=== PATIENT | female | born 1945 | race Caucasian/White ===

== ENCOUNTER 2016-03-11 19:02 | Emergency (ER) | payer MEDICARE, BC ==
[2016-03-11 21:48] LABS: ABSOLUTE LYMPHOCYTES (AUTO) 1.1 10^3/uL (0.5-4.7); ABSOLUTE MONOCYTES (AUTO) 0.1 10^3/uL (0.1-1.4); ABSOLUTE NEUT (AUTO) 8.3 10^3/uL (1.7-8.2); BASOPHILS % (AUTO) 0.4 % (0-2); EOSINOPHILS % (AUTO) 0.3 % (0-6); HEMATOCRIT 35.2 % (36.0-47.0); HEMOGLOBIN 11.7 g/dL (12.0-15.5); HGB HCT DIFFERENCE -0.1; LYMPHOCYTES % (AUTO) 11.4 % (13-45); MEAN CORPUSCULAR HEMOGLOBIN 29.5 pg (27.0-33.4); MEAN CORPUSCULAR HGB CONC 33.2 g/dL (32.0-36.0); MEAN CORPUSCULAR VOLUME 89 fl (80-97); RED BLOOD COUNT 3.96 10^6/uL (3.72-5.28); RED CELL DISTRIBUTION WIDTH 13.7 % (11.5-14.0); SEGMENTED NEUTROPHILS % (AUTO) 86.9 % (42-78); WHITE BLOOD COUNT 9.5 10^3/uL (4.0-10.5)
[2016-03-11 22:08] LABS: ANION GAP 10 (5-19); BLOOD UREA NITROGEN 30 mg/dL (7-20); CALCIUM 8.2 mg/dL (8.4-10.2); CARBON DIOXIDE 26 mmol/L (22-30); CHLORIDE 100 mmol/L (98-107); CREATININE RESULT 0.67 mg/dL (0.52-1.25); GLUCOSE 101 mg/dL (75-110); POTASSIUM 4.6 mmol/L (3.6-5.0); SODIUM 136.2 mmol/L (137-145)
[2016-03-11] MEDS ORDERED: ONDANSETRON ODT 4 MG TAB (6 TAB/DSPK) PO PRN (23:30)
--- NOTE | 2016-03-11 23:31 | ER Document Report ---
ED General - General Chief Complaint: Nausea/Vomiting/Diarrhea Stated Complaint: POSSIBLE SEIZURE,VOMITING TRAVEL OUTSIDE OF THE [place] IN LAST 30 DAYS: No - HPI Patient complains to provider of: nausea vomiting possible seizure Notes: Patient coming in for nausea vomiting and possible seizure. Patient states she was out at a local restaurant with her physician Dr. Bear when she passed out for approximately 25-30 seconds with September shaking did come to within had a massive amounts of diarrhea and vomiting at the restaurant. Patient was transferred by EMS was given Zofran IV fluids. Patient currently is undergoing chemotherapy for cancer. Patient states she just finished up her last dose chemotherapy. Upon evaluation patient lying flat stretcher states she's feeling much better at nausea medications. Denies fevers chills - Related Data Allergies/Adverse Reactions: Bee Stings/Wasp Allergy (Severe, Uncoded 07/30/12 14:39) Anaphylaxis Past Medical History - General Information source: Patient, Friend, Emergency Med Personnel Last Menstrual Period: n/a - Social History Smoking Status: Never Smoker Chew tobacco use (# tins/day): No Frequency of alcohol use: Occasional Drug Abuse: None Family History: None Patient has suicidal ideation: No Patient has homicidal ideation: No - Past Medical History Cardiac Medical History: Reports: Hx Hypertension Denies: Hx Coronary Artery Disease, Hx Heart Attack Pulmonary Medical History: Denies: Hx Asthma, Hx Bronchitis, Hx COPD, Hx Pneumonia Neurological Medical History: Denies: Hx Cerebrovascular Accident, Hx Seizures GI Medical History: Reports: Hx Gastroesophageal Reflux Disease Musculoskeltal Medical History: Denies Hx Arthritis Past Surgical History: Reports: Hx Appendectomy, Hx Orthopedic Surgery - right finger, left wrist, Hx Thyroid Surgery, Hx Tonsillectomy. Denies: Hx Hysterectomy - Immunizations Hx Diphtheria, Pertussis, Tetanus Vaccination: No Review of Systems - Review of Systems Constitutional: No symptoms reported EENT: No symptoms reported Cardiovascular: No symptoms reported Respiratory: No symptoms reported Gastrointestinal: Diarrhea, Nausea, Vomiting Genitourinary: No symptoms reported Female Genitourinary: No symptoms reported Musculoskeletal: No symptoms reported Skin: No symptoms reported Hematologic/Lymphatic: No symptoms reported Neurological/Psychological: No symptoms reported -: Yes All other systems reviewed and negative Physical Exam - Vital signs Vitals: Temp Pulse Resp BP Pulse Ox 97.7 F 52 L 16 115/46 L 96 03/11/16 19:28 03/11/16 19:28 03/11/16 19:28 03/11/16 19:28 03/11/16 19:28 Interpretation: Normal - General General appearance: Appears well, Alert - HEENT Head: Normocephalic, Atraumatic Eyes: Normal Pupils: PERRL - Respiratory Respiratory status: No respiratory distress Chest status: Nontender Breath sounds: Normal Chest palpation: Normal - Cardiovascular Rhythm: Regular Heart sounds: Normal auscultation Murmur: No - Abdominal Inspection: Normal Distension: No distension Bowel sounds: Normal Tenderness: Nontender Organomegaly: No organomegaly - Back Back: Normal, Nontender - Extremities General upper extremity: Normal inspection, Nontender, Normal color, Normal ROM , Normal temperature General lower extremity: Normal inspection, Nontender, Normal color, Normal ROM , Normal temperature, Normal weight bearing. No: Jennifer's sign - Neurological Neuro grossly intact: Yes Cognition: Normal Orientation: AAOx4 Karina Coma Scale Eye Opening: Spontaneous Karina Coma Scale Verbal: Oriented Karina Coma Scale Motor: Obeys Commands Karina Coma Scale Total: 15 Speech: Normal Motor strength normal: LUE, RUE, LLE, RLE Sensory: Normal - Psychological Associated symptoms: Normal affect, Normal mood - Skin Skin Temperature: Warm Skin Moisture: Dry Skin Color: Normal Course - Re-evaluation Re-evalutation: 03/12/16 03:21 Patient coming in for nausea vomiting diarrhea in a possible seizure. Patient and recently had a CT of her head performed approximately one week ago. At this time do not think there is any rationale to obtain another CT scan to check for mass or metastases. Patient and family agrees with this. Orthostatics were positive patient was given IV fluids on rechecking patient stated he understood feet feeling better requesting to be discharged home. Patient will be given Zofran for home patient's follow-up with her PCP - Vital Signs Vital signs: Temp Pulse Resp BP Pulse Ox 98.2 F 48 L 18 99/56 L 100 03/11/16 23:01 03/11/16 21:25 03/11/16 23:01 03/11/16 23:01 03/11/16 23:01 - Laboratory Result Diagrams: 03/11/16 21:32 03/11/16 21:32 Laboratory results interpreted by me: 03/11/16 03/11/16 21:32 21:32 Hgb 11.7 L Hct 35.2 L Seg Neutrophils % 86.9 H Lymphocytes % 11.4 L Monocytes % 1.0 L Absolute Neutrophils 8.3 H Sodium 136.2 L BUN 30 H Calcium 8.2 L Discharge - Discharge Clinical Impression: Nausea vomiting and diarrhea, possible seizure Condition: Good Disposition: HOME, SELF-CARE Instructions: Seizure, Known Epileptic ([facility]), Nausea or Vomiting, Nonspecific ( [facility]) Additional Instructions: Follow-up with your primary care physician Take medication as prescribed. Prescriptions: Ondansetron [Zofran Odt 4 mg Tablet] 1 - 2 tab PO Q4H PRN #15 tab.rapdis PRN Reason: For Nausea/Vomiting Referrals: RACHEL BEAR MD [Primary Care Provider] - Follow up as needed
[2016-03-11 23:58] VITALS: BP 99/56
== END 2016-03-11 23:40 | disposition home or self-care (01) ==
LOC: ER 19:02
DX: R11.2 Nausea with vomiting, unspecified (principal); R19.7 Diarrhea, unspecified
CPT/HCPCS: 99284; 36415; 85025; 80048; A9270

== ENCOUNTER 2016-07-02 17:25 | Emergency (ER) | payer MEDICARE, BC ==
[2016-07-02] MEDS ORDERED: ACETAMINOPHEN 325 MG TABLET PO ONE (17:47)
[2016-07-02] MEDS ORDERED: LIDOCAINE 1%/EPINEPHRINE INJ 20 ML VIAL INJ ONE (17:58)
[2016-07-02] MEDS ORDERED: OXYCODONE-ACETAMINOPHEN 5-325 MG TABLET PO ONE (17:58)
--- NOTE | 2016-07-02 18:15 | ER Document Report ---
ED Head/Face/Scalp Injury - General Chief Complaint: Facial Injury Stated Complaint: FALL,FACE INJURY Information source: Patient Notes: Patient is a 71-year-old female who states she went on in the rain to take up pot that was getting too much water, when she lost her balance and fell forward hitting her face. She is unsure whether or not she lost consciousness. Patient denies pain to any other location other than her forehead. She specifically denies any neck pain, chest pain, abdominal pain, back pain, or extremity pain. 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 Patient is on chemotherapy with a blood draw just yesterday showing platelets of 134,000 with a low but stable white blood cell count. TRAVEL OUTSIDE OF THE [place] IN LAST 30 DAYS: No - HPI Patient complains to provider of: Contusion, Injury Injury to: Forehead Occurred: Just prior to arrival Where: Home Timing: Still present Context: Fell Loss consciousness: Unsure Remembers: Injury, Coming to hospital - Related Data Allergies/Adverse Reactions: Bee Stings/Wasp Allergy (Severe, Uncoded 07/30/12 14:39) Anaphylaxis Past Medical History - General Information source: Patient - Social History Smoking Status: Unknown if Ever Smoked Cigarette use (# per day): No Chew tobacco use (# tins/day): No Smoking Education Provided: No Frequency of alcohol use: None Drug Abuse: None Family History: None - Past Medical History Cardiac Medical History: Reports: Hx Hypertension Denies: Hx Coronary Artery Disease, Hx Heart Attack Pulmonary Medical History: Denies: Hx Asthma, Hx Bronchitis, Hx COPD, Hx Pneumonia Neurological Medical History: Denies: Hx Cerebrovascular Accident, Hx Seizures GI Medical History: Reports: Hx Gastroesophageal Reflux Disease Musculoskeltal Medical History: Denies Hx Arthritis Past Surgical History: Reports: Hx Appendectomy, Hx Orthopedic Surgery - right finger, left wrist, Hx Thyroid Surgery, Hx Tonsillectomy. Denies: Hx Hysterectomy - Immunizations Hx Diphtheria, Pertussis, Tetanus Vaccination: No Review of Systems - Review of Systems Constitutional: denies: Fever EENT: denies: Eye discharge, Nose discharge Cardiovascular: denies: Chest pain, Palpitations, Dyspnea Respiratory: denies: Short of breath Gastrointestinal: denies: Abdomen distended, Abdominal pain, Vomiting Genitourinary: denies: Dysuria Musculoskeletal: denies: Back pain, Leg swelling Skin: Other - no hives. denies: Rash Neurological/Psychological: Other - no slurred speech -: Yes All other systems reviewed and negative Physical Exam - Vital signs Vitals: Temp Pulse Resp BP Pulse Ox 98.0 F 74 16 134/70 H 97 07/02/16 18:00 07/02/16 18:00 07/02/16 18:00 07/02/16 18:00 07/02/16 18:00 Notes: Reviewed vital signs and nursing note as charted by RN. CONSTITUTIONAL: Alert and oriented and responds appropriately to questions. Well -appearing; well-nourished HEAD: Normocephalic; patient has superficial abrasions to the face. Patient has one laceration that is horizontal across the bridge of the nose that is currently hemostatic as well as another one to the left forehead that appears to possibly require stitches. EYES: PERRL; full extraocular range of motion. ENT: No septal hematoma noted; moist mucous membranes; pharynx without lesions noted NECK: Supple without meningismus; non-tender CARD: Regular rate and rhythm; no murmurs, no clicks, no rubs, no gallops; symmetric distal pulses RESP: Normal chest excursion without splinting or tachypnea; breath sounds clear and equal bilaterally; no wheezes, no rhonchi, no rales ABD/GI: Normal bowel sounds; non-distended; soft, non-tender BACK: The back appears normal and is non-tender to palpation EXT: Normal ROM in all joints; non-tender to palpation; no cyanosis, no effusions, no edema SKIN: Lesions as noted NEURO: CN II through XII are intact. Moves all extremities equally; Motor and sensory function intact PSYCH: The patient's mood and manner are appropriate. Grooming and personal hygiene are appropriate. Course - Re-evaluation Re-evalutation: 07/02/16 18:14 Given the history and physical examination we will order a CT scan of the head as well as basic laboratory values. We will most likely update the patient's tetanus and suture the lacerations as appropriate. I do not believe that the patient requires any imaging of the neck, chest or extremity is at this time. 07/02/16 19:55 Labs consistent with past medical history. CT scan as recorded. I sutured the 3 lacerations. Patient will be discharged home with strict return precautions, antibiotic instructions, and suture instructions as well. - Vital Signs Vital signs: Temp Pulse Resp BP Pulse Ox 98.0 F 74 16 134/70 H 97 07/02/16 18:00 07/02/16 18:00 07/02/16 18:00 07/02/16 18:00 07/02/16 18:00 - Laboratory Result Diagrams: 07/02/16 18:55 07/02/16 18:55 Laboratory results interpreted by me: 07/02/16 07/02/16 18:55 18:55 RBC 2.49 L Hgb 8.2 L Hct 24.2 L RDW 19.3 H Plt Count 132 L Seg Neuts % (Manual) 94 H Lymphocytes % (Manual) 3 L Abs Lymphs (Manual) 0.2 L BUN 28 H Glucose 111 H Procedures - Laceration/Wound Repair Face Wound length (cm): 2 Wound's Depth, Shape: Linear Laceration pre-procedure: Sterile PPE donned Anesthetic type: 1% Lidocaine w/epi Volume Anesthetic (mLs): 3 Wound explored: Clean Wound Debrided: Minimal Wound Repaired With: Sutures Suture Size/Type: 5:0, Prolene Number of Sutures: 4 Layer Closure?: No Post-procedure wound care: Sterile dressing applied Post-procedure NV exam normal: Yes Complications: No Head Wound length (cm): 2 Wound's Depth, Shape: Linear Laceration pre-procedure: Sterile PPE donned Anesthetic type: 1% Lidocaine w/epi Volume Anesthetic (mLs): 3 Wound explored: Clean Wound Debrided: Minimal Wound Repaired With: Sutures Suture Size/Type: 5:0 Number of Sutures: 3 Layer Closure?: No Post-procedure wound care: Sterile dressing applied Post-procedure NV exam normal: Yes Complications: Yes Notes: 07/02/16 19:59 There was a third facial laceration. 1 cm in length. We cleaned and prepped the area and use 1% lidocaine with epinephrine, 2 mL to anesthetize the area. I then placed three 5.0 Prolene sutures for this wound as well. Discharge - Discharge Clinical Impression: Closed head injury Qualifiers: Encounter type: initial encounter Qualified Code(s): S09.90XA - Unspecified injury of head, initial encounter Accidental fall Qualifiers: Encounter type: initial encounter Qualified Code(s): W19.XXXA - Unspecified fall, initial encounter Face lacerations Qualifiers: Encounter type: initial encounter Qualified Code(s): S01.81XA - Laceration without foreign body of other part of head, initial encounter Condition: Good Disposition: HOME, SELF-CARE Instructions: Antibiotic Ointment Protection ([facility]), Prophylactic Antibiotic ( [facility]), Soap Cleansing ([facility]), Tetanus Immunization Given ([facility]) Additional Instructions: Come back immediately with any vomiting, weakness or numbness, fevers or redness , confusion, or any other acute problems. Please have the sutures removed in 5 days as we have discussed and apply bacitracin to the wound twice daily until the stitches are removed. Once the stitches are removed please make sure that you place antibiotic ointment to the lacerations daily for one year. Prescriptions: Cephalexin Monohydrate [Keflex 500 mg Capsule] 500 mg PO Q6H 5 Days
[2016-07-02 19:17] LABS: HEMATOCRIT 24.2 % (36.0-47.0); HEMOGLOBIN 8.2 g/dL (12.0-15.5); HGB HCT DIFFERENCE 0.4; MEAN CORPUSCULAR HEMOGLOBIN 32.9 pg (27.0-33.4); MEAN CORPUSCULAR VOLUME 97 fl (80-97); RED BLOOD COUNT 2.49 10^6/uL (3.72-5.28); RED CELL DISTRIBUTION WIDTH 19.3 % (11.5-14.0); WHITE BLOOD COUNT 6.7 10^3/uL (4.0-10.5)
[2016-07-02 19:21] LABS: ANION GAP 13 (5-19); BLOOD UREA NITROGEN 28 mg/dL (7-20); CALCIUM 8.4 mg/dL (8.4-10.2); CARBON DIOXIDE 24 mmol/L (22-30); CHLORIDE 106 mmol/L (98-107); CREATININE RESULT 0.85 mg/dL (0.52-1.25); GLUCOSE 111 mg/dL (75-110); POTASSIUM 3.9 mmol/L (3.6-5.0); SODIUM 143.4 mmol/L (137-145)
[2016-07-02 19:41] LABS: BASOPHILS % (MANUAL) 0 % (0-2); EOSINOPHILS % (MANUAL) 0 % (0-6); LYMPHOCYTES % (MANUAL) 3 % (13-45); TOTAL CELLS COUNTED 100
[2016-07-02 19:43] LABS: POLYCHROMASIA 1+; TOXIC GRANULATION 1+
[2016-07-02 19:44] LABS: ANISOCYTOSIS 2+; OVALOCYTES SLIGHT; POIKILOCYTOSIS 1+; SCHISTOCYTES SLIGHT; TEAR DROP CELLS 1+
[2016-07-02] MEDS ORDERED: CEPHALEXIN 500 MG CAPSULE PO ONE (20:02)
[2016-07-02] MEDS ORDERED: DIPH/PERTUSS(ACELL)/TETANUS VAC/PF 0.5 ML SYR (>=10YO) IM ONE (20:19)
[2016-07-02 20:36] VITALS: BP 142/82
== END 2016-07-02 20:59 | disposition home or self-care (01) ==
LOC: ER 17:25
PROC: 0HQ1XZZ Repair Face Skin, External Approach (ICD-10-PCS; principal; 2016-07-02)
PROC: 09QKXZZ Repair Nasal Mucosa and Soft Tissue, External Approach (ICD-10-PCS; 2016-07-02)
DX: S01.21XA Laceration without foreign body of nose, initial encounter (principal); S01.81XA Laceration without foreign body of other part of head, initial encounter; W10.9XXA Fall (on) (from) unspecified stairs and steps, initial encounter; Y93.89 Activity, other specified; Y92.009 Unspecified place in unspecified non-institutional (private) residence as the place of occurrence of the external cause; C50.919 Malignant neoplasm of unspecified site of unspecified female breast; C34.90 Malignant neoplasm of unspecified part of unspecified bronchus or lung; I10 Essential (primary) hypertension; Z79.899 Other long term (current) drug therapy; Z87.892 Personal history of anaphylaxis; Z91.030 Bee allergy status; Z91.038 Other insect allergy status
CPT/HCPCS: 99284; 90471; 36415; 85025; 80048; 70450; 90715; 12013; A9270 ×2; J3490

== ENCOUNTER 2016-07-07 10:31 | Emergency (ER) | payer MEDICARE, BC ==
--- NOTE | 2016-07-07 10:53 | ER Document Report ---
ED General - General Chief Complaint: Low Blood Pressure Stated Complaint: BLOOD PRESSURE PROBLEMS,SUTURE REMOVAL Mode of Arrival: Wheelchair Information source: Patient Notes: 71-year-old female history of breast and lung cancer who is receiving chemotherapy at [facility] presents with complaints of weakness low blood pressure. Patient notes that she has had nausea vomiting and diarrhea for the past few days and has not been hydrating well TRAVEL OUTSIDE OF THE [place] IN LAST 30 DAYS: No - HPI Onset: Last week Onset/Duration: Persistent Quality of pain: Achy Severity: Mild Pain Level: 1 Associated symptoms: Body/muscle aches, Weakness Exacerbated by: Denies Relieved by: Denies Similar symptoms previously: Yes Recently seen / treated by doctor: Yes - Related Data Allergies/Adverse Reactions: Bee Stings/Wasp Allergy (Severe, Uncoded 07/07/16 10:35) Anaphylaxis Past Medical History - Social History Smoking Status: Never Smoker Cigarette use (# per day): No Chew tobacco use (# tins/day): No Smoking Education Provided: No Family History: None Patient has suicidal ideation: No Patient has homicidal ideation: No - Past Medical History Cardiac Medical History: Reports: Hx Hypertension Denies: Hx Coronary Artery Disease, Hx Heart Attack Pulmonary Medical History: Denies: Hx Asthma, Hx Bronchitis, Hx COPD, Hx Pneumonia Neurological Medical History: Denies: Hx Cerebrovascular Accident, Hx Seizures Renal/ Medical History: Denies: Hx Peritoneal Dialysis GI Medical History: Reports: Hx Gastroesophageal Reflux Disease Musculoskeltal Medical History: Denies Hx Arthritis Past Surgical History: Reports: Hx Appendectomy, Hx Orthopedic Surgery - right finger, left wrist, Hx Thyroid Surgery, Hx Tonsillectomy. Denies: Hx Hysterectomy - Immunizations Hx Diphtheria, Pertussis, Tetanus Vaccination: No Review of Systems - Review of Systems Notes: REVIEW OF SYSTEMS: CONSTITUTIONAL : Denies fever, chills, or sweats. Denies recent illness. EENT: Denies eye, ear, throat, or mouth pain or symptoms. Denies nasal or sinus congestion or discharge. Denies throat, tongue, or mouth swelling or difficulty swallowing. CARDIOVASCULAR: Denies chest pain. Denies palpitations or racing or irregular heart beat. Denies ankle edema. RESPIRATORY: Denies cough, cold, or chest congestion. Denies shortness of breath, difficulty breathing, or wheezing. GASTROINTESTINAL: Denies abdominal pain or distention. Denies nausea, vomiting , or diarrhea. Denies blood in vomitus, stools, or per rectum. Denies black, tarry stools. Denies constipation. GENITOURINARY: Denies difficulty urinating, painful urination, burning, frequency, blood in urine, or discharge. FEMALE GENITOURINARY: Denies vaginal bleeding, heavy or abnormal periods, irregular periods. Denies vaginal discharge or odor. MUSCULOSKELETAL: Denies back or neck pain or stiffness. Denies joint pain or swelling. SKIN: Denies rash, lesions or sores. HEMATOLOGIC : Denies easy bruising or bleeding. LYMPHATIC: Denies swollen, enlarged glands. NEUROLOGICAL: Admits to generalized weakness PSYCHIATRIC: Denies anxiety or stress. Denies depression, suicidal ideation, or homicidal ideation. ALL OTHER SYSTEMS REVIEWED AND NEGATIVE. Dictation was performed using [employer] voice recognition software PHYSICAL EXAMINATION: GENERAL: Hypotensive on arrival HEAD: Previous 3 lacerations well-healing multiple sutures in place EYES: Pupils equal round and reactive to light, extraocular movements intact, conjunctiva are normal. ENT: Ecchymosis around the right orbit from previous injury , Nares patent, oropharynx clear without exudates. Moist mucous membranes. NECK: Normal range of motion, supple without lymphadenopathy LUNGS: Breath sounds clear to auscultation bilaterally and equal. No wheezes rales or rhonchi. HEART: Regular rate and rhythm without murmurs ABDOMEN: Soft, nontender, nondistended abdomen. No guarding, no rebound. No masses appreciated. Female : deferred Musculoskeletal: Normal range of motion, no pitting or edema. No cyanosis. NEUROLOGICAL: Cranial nerves grossly intact. Normal speech, normal gait. Normal sensory, motor exams PSYCH: Normal mood, normal affect. SKIN: Warm, Dry, normal turgor, no rashes or lesions noted. Physical Exam - Vital signs Vitals: Temp Pulse Resp BP Pulse Ox 97.4 F 113 H 19 89/53 L 98 07/07/16 10:38 07/07/16 10:38 07/07/16 10:38 07/07/16 10:38 07/07/16 10:38 Course - Re-evaluation Re-evalutation: 07/07/16 10:52 Patient is noted to be hypotensive, poor will be accessed patient will be given IV fluids 07/07/16 13:34 Patient notes that her blood pressure is improved she feels great and wishes to be discharged home. I will discharge her at her request. Given that her white count is low and she has not received her neulasta, i have ordered it from pharmacy Otherwise patient will be discharged Sutures were removed by nurse After performing a Medical Screening Examination, I estimate there is LOW risk for INTRACRANIAL HEMORRHAGE, ISCHEMIC CVA, MALIGNANT DYSRHYTHMIA, ACUTE CORONARY SYNDROME, MENINGITIS, PULMONARY EMBOLISM, or SEPSIS thus I consider the discharge disposition reasonable. I have reevaluated this patient multiple times and no significant life threatening changes are noted. The patient and I have discussed the diagnosis and risks, and we agree with discharging home with close follow-up with the understanding that symptoms and presentations can change. We also discussed returning to the Emergency Department immediately if new or worsening symptoms occur. We have discussed the symptoms which are most concerning (e.g., changing or worsening pain, weakness, vomiting, fever) that necessitate immediate return. 07/07/16 13:35 - Vital Signs Vital signs: Temp Pulse Resp BP Pulse Ox 97.4 F 113 H 19 110/57 L 98 07/07/16 10:38 07/07/16 10:38 07/07/16 13:02 07/07/16 12:46 07/07/16 13:02 - Laboratory Result Diagrams: 07/07/16 11:00 07/07/16 11:00 Laboratory results interpreted by me: 07/07/16 07/07/16 11:00 11:00 WBC 1.2 L* RBC 2.83 L Hgb 9.3 L Hct 27.6 L MCV 98 H RDW 17.9 H Monocytes % (Manual) 2 L Abs Neuts (Manual) 0.7 L Abs Monocytes (Manual) 0.0 L BUN 33 H Est GFR (Non-Af Amer) 51 L Glucose 114 H - Diagnostic Test Radiology reviewed: Image reviewed, Reports reviewed - EKG Interpretation by Me EKG shows normal: Sinus rhythm, Dawn, Intervals, QRS Complexes Critical Care Note - Critical Care Note Total time excluding time spent on procedures (mins): 35 Comments: 35 minutes of critical care time spent in direct contact evaluating and reevaluating the patient, treating symptoms, reviewing labs and studies and speaking with family and consultants excluding any procedures Discharge - Discharge Clinical Impression: Visit for suture removal, LOW WBC COUNT Hypotension Qualifiers: Hypotension type: unspecified hypotension type Qualified Code(s): I95.9 - Hypotension, unspecified Hypotension Qualifiers: Hypotension type: unspecified hypotension type Qualified Code(s): I95.9 - Hypotension, unspecified Condition: Stable Disposition: HOME, SELF-CARE Additional Instructions: Please follow-up with your primary care physician or return immediately if there any other concerns
[2016-07-07] MEDS ORDERED: ONDANSETRON HCL INJ/PF 4 MG/2 ML SDV IV ONE (11:03)
[2016-07-07] MEDS: NORMAL SALINE 1000 ML 1,000 ML IV PRN ×2 (11:09→13:10)
[2016-07-07 11:30] LABS: HEMATOCRIT 27.6 % (36.0-47.0); HEMOGLOBIN 9.3 g/dL (12.0-15.5); HGB HCT DIFFERENCE 0.3; MEAN CORPUSCULAR HEMOGLOBIN 32.7 pg (27.0-33.4); MEAN CORPUSCULAR HGB CONC 33.5 g/dL (32.0-36.0); MEAN CORPUSCULAR VOLUME 98 fl (80-97); RED BLOOD COUNT 2.83 10^6/uL (3.72-5.28); RED CELL DISTRIBUTION WIDTH 17.9 % (11.5-14.0)
[2016-07-07 11:41] LABS: ALANINE AMINOTRANSFERASE 37 U/L (9-52); ALBUMIN 3.8 g/dL (3.5-5.0); ALKALINE PHOSPHATASE 95 U/L (38-126); ANION GAP 13 (5-19); ASPARTATE AMINO TRANSFERASE 22 U/L (14-36); BILIRUBIN,DIRECT 0.2 mg/dL (0.0-0.4); BILIRUBIN,TOTAL 0.4 mg/dL (0.2-1.3); BLOOD UREA NITROGEN 33 mg/dL (7-20); CALCIUM 8.5 mg/dL (8.4-10.2); CARBON DIOXIDE 28 mmol/L (22-30); CHLORIDE 100 mmol/L (98-107); CREATININE RESULT 1.07 mg/dL (0.52-1.25); GLUCOSE 114 mg/dL (75-110); SODIUM 140.6 mmol/L (137-145); TOTAL PROTEIN 6.7 g/dL (6.3-8.2)
[2016-07-07 11:42] LABS: POTASSIUM 3.7 mmol/L (3.6-5.0)
[2016-07-07 12:03] LABS: BAND NEUTROPHILS % (MANUAL) 4 % (3-5); BASOPHILS % (MANUAL) 0 % (0-2); EOSINOPHILS % (MANUAL) 2 % (0-6); LYMPHOCYTES % (MANUAL) 36 % (13-45); TOTAL CELLS COUNTED 50
[2016-07-07 12:04] LABS: ANISOCYTOSIS 1+; OVALOCYTES SLIGHT; PLATELET CLUMPS PRESENT; POIKILOCYTOSIS SLIGHT; TEAR DROP CELLS SLIGHT
[2016-07-07 12:07] LABS: WHITE BLOOD COUNT 1.2 10^3/uL (4.0-10.5)
[2016-07-07] MEDS ORDERED: PEGFILGRASTIM INJ 6 MG/0.6 ML DISP.SYRIN SUBCUT ONE (14:15)
[2016-07-07 14:18] VITALS: BP 108/69
[2016-07-08 17:53] LABS: PATH REVIEW PATHOLOGIST REVIEWED
== END 2016-07-07 14:16 | disposition home or self-care (01) ==
LOC: ER 10:31
DX: I95.9 Hypotension, unspecified (principal); Z48.02 Encounter for removal of sutures; C50.919 Malignant neoplasm of unspecified site of unspecified female breast; C78.00 Secondary malignant neoplasm of unspecified lung; M79.1 Myalgia; R11.2 Nausea with vomiting, unspecified; R53.1 Weakness; I10 Essential (primary) hypertension; Z91.030 Bee allergy status
CPT/HCPCS: 36591; 99291; 96372; 96360; 96361; 36415; 85025; 80053; 71010; J2505; J7030

== ENCOUNTER 2016-07-25 11:39 | Day surgery (SDC) | payer MEDICARE, BC ==
[2016-07-25] MEDS ORDERED: DIPHENHYDRAMINE HCL 50 MG/ML VIAL ONE (12:31)
[2016-07-25] MEDS ORDERED: NALOXONE HCL INJ/PF 0.4 MG/1 ML SDV ONE (12:31)
[2016-07-25] MEDS ORDERED: ONDANSETRON HCL INJ/PF 4 MG/2 ML SDV ONE (12:31)
[2016-07-25] MEDS ORDERED: FLUMAZENIL INJ 0.5 MG/5 ML VIAL IV ONE (12:32)
[2016-07-25] MEDS ORDERED: GLUCAGON,HUMAN RECOMB 1 MG INJ ONE (12:32)
[2016-07-25] MEDS ORDERED: EPINEPHRINE INJ 1 MG/10 ML DISP.SYRIN ONE (12:32)
[2016-07-25] MEDS: MIDAZOLAM 2 MG/2 ML INJ ONE ×6 (12:50→13:10)
[2016-07-25] MEDS: FENTANYL CITRATE INJ/PF 100 MCG/2 ML AMPUL ONE ×3 (12:52→13:00)
[2016-07-25] MEDS ORDERED: MIDAZOLAM 2 MG/2 ML INJ ONE (13:19)
[2016-07-25] MEDS ORDERED: FENTANYL CITRATE INJ/PF 100 MCG/2 ML AMPUL ONE (13:19)
--- NOTE | 2016-07-25 13:47 | Operative Report ---
Operative Report DATE OF SURGERY: 07/25/16 Operative Report: The risks, benefits and alternatives of the procedure including risks of bleeding, perforation requiring surgery are explained to the patient detail and informed consent was obtained. Patient was taken back to the endoscopy suite and placed in the left common lateral decubital position. A rectal examination was done which did not give any masses, tears or fissures. An Olympus video scope was inserted into the patient's rectum. The scope was gradually advanced all the way to the cecum. The cecum was identified by the usual anatomical Diamox including the ileocecal valve as well as the appendiceal office. Photodocumentation is obtained. The scope was then sequentially pulled back the interventions of the colon including the ascending colon, hepatic flexure, transverse colon, splenic flexure, descending colon and splenic to the rectosigmoid portions of the colon. Retroflexion maneuver was performed. Prep is good. PREOPERATIVE DIAGNOSIS: Rectal bleeding POSTOPERATIVE DIAGNOSIS: Anal fissure. Internal hemorrhoids. Diverticulosis. Small sessile descending colon polyp removed via biopsy forceps OPERATION: Colonoscopy with biopsy SURGEON: VICKIE OGDEN ANESTHESIA: Moderate Sedation - 9 mg of Versed, 200 mcg of fentanyl. Conscious sedation monitoring time 30 minutes. TISSUE REMOVED OR ALTERED: Specimen as described above COMPLICATIONS: None. ESTIMATED BLOOD LOSS: None. INTRAOPERATIVE FINDINGS: There is severe sigmoid diverticulosis. Small sessile 1 mm polyp in the descending colon removed with biopsy forceps. Internal hemorrhoids. Small anal fissure. No other bleeding site noted. No obstructive lesion noted PROCEDURE: Patient tolerated the procedure well. Patient is discharged in good condition. Discharge date 07/25/2016. Discharge diet: Regular. Discharge activity: Regular. 2- 3 week follow-up to discuss findings. Patient was instructed to call the office or go to the emergency room should there be any further thoughts or questions. We will wait on biopsies.
[2016-07-25 14:29] VITALS: BP 107/85
== END 2016-07-25 14:47 | disposition home or self-care (01) ==
LOC: END 11:39
PROVIDERS: ATTEND Internal Medicine Gastroenterology
PROC: 0DBM8ZX Excision of Descending Colon, Via Natural or Artificial Opening Endoscopic, Diagnostic (ICD-10-PCS; principal; 2016-07-25 13:00)
DX: D12.4 Benign neoplasm of descending colon (principal); K64.8 Other hemorrhoids; K57.30 Diverticulosis of large intestine without perforation or abscess without bleeding; K62.5 Hemorrhage of anus and rectum; I10 Essential (primary) hypertension; E89.0 Postprocedural hypothyroidism; Z85.3 Personal history of malignant neoplasm of breast; Z85.118 Personal history of other malignant neoplasm of bronchus and lung
CPT/HCPCS: 45380; 88305 ×2; J2250; J3010; J0171; J1200; J1610; J2310; J2405; J3490

== ENCOUNTER 2017-01-17 09:24 | Emergency (ER) | payer MEDICARE, BC ==
[2017-01-17] MEDS ORDERED: NORMAL SALINE 1000 ML 1,000 ML IV ONE ×2 (09:48→12:13)
[2017-01-17] MEDS ORDERED: METOCLOPRAMIDE HCL INJ/PF 10 MG/2 ML SDV IV ONE (09:49)
--- NOTE | 2017-01-17 09:52 | ER Document Report ---
ED GI/ - General Chief Complaint: Nausea/Vomiting Stated Complaint: NAUSEA,VOMITING Time Seen by Provider: 01/17/17 09:47 Mode of Arrival: Ambulatory Information source: Patient Notes: Patient is a 71-year-old female with breast cancer and small cell lung carcinoma who presents to the ER today for nausea and vomiting while attempting to perform a gastric emptying test ordered by her software quality assurance analyst, Dr. Ogden. Patient could not hold down the "radioactive egg sandwich" that they made her eat for this test. Patient states that she has had nausea and vomiting constantly for 4 months and that multiple doctors are "working on it" and have not figured out why. Patient states that she recently had a PET scan that showed good results. TRAVEL OUTSIDE OF THE [place] IN LAST 30 DAYS: No - Related Data Allergies/Adverse Reactions: morphine Allergy (Severe, Verified 07/25/16 12:22) Hallucinations Bee Stings/Wasp Allergy (Severe, Uncoded 07/07/16 10:35) Anaphylaxis Past Medical History - General Information source: Patient - Social History Smoking Status: Unknown if Ever Smoked Chew tobacco use (# tins/day): No Frequency of alcohol use: None Drug Abuse: None Family History: None Patient has suicidal ideation: No Patient has homicidal ideation: No - Past Medical History Cardiac Medical History: Reports: Hx Hypertension Denies: Hx Coronary Artery Disease, Hx Heart Attack Pulmonary Medical History: Denies: Hx Asthma, Hx Bronchitis, Hx COPD, Hx Pneumonia Neurological Medical History: Denies: Hx Cerebrovascular Accident, Hx Seizures Renal/ Medical History: Denies: Hx Peritoneal Dialysis GI Medical History: Reports: Hx Gastroesophageal Reflux Disease Musculoskeltal Medical History: Denies Hx Arthritis Past Surgical History: Reports: Hx Appendectomy, Hx Mastectomy - mastectomy, Hx Orthopedic Surgery - right finger, left wrist, Hx Thyroid Surgery, Hx Tonsillectomy. Denies: Hx Hysterectomy - Immunizations Hx Diphtheria, Pertussis, Tetanus Vaccination: No Review of Systems - Review of Systems Constitutional: No symptoms reported EENT: No symptoms reported Cardiovascular: No symptoms reported Respiratory: No symptoms reported Gastrointestinal: See HPI Genitourinary: No symptoms reported Female Genitourinary: No symptoms reported Musculoskeletal: No symptoms reported Skin: No symptoms reported Hematologic/Lymphatic: See HPI Neurological/Psychological: No symptoms reported Physical Exam - Vital signs Vitals: Temp Pulse Resp BP Pulse Ox 97.4 F 72 20 138/88 H 94 11/10/17 09:30 01/17/17 09:30 01/17/17 09:30 01/17/17 09:30 01/17/17 09:30 - Notes Notes: PHYSICAL EXAMINATION: GENERAL: Chronically ill-appearing, but in no acute distress. HEAD: Atraumatic, normocephalic. EYES: Pupils equal round and reactive to light, extraocular movements intact, sclera anicteric, conjunctiva are normal. NECK: Normal range of motion, supple without lymphadenopathy LUNGS: CTAB and equal. No wheezes rales or rhonchi. HEART: Regular rate and rhythm without murmurs ABDOMEN: Soft, Mild diffuse tenderness. No guarding, no rebound BACK: no vertebral tenderness, normal ROM GI/: no CVA tenderness EXTREMITIES: Normal range of motion, no pitting edema. No cyanosis. NEUROLOGICAL: Cranial nerves grossly intact. Normal sensory/motor exams. PSYCH: Normal mood, normal affect. SKIN: Warm, Dry, normal turgor, no rashes or lesions noted Course - Re-evaluation Re-evalutation: 01/17/17 16:56 lab work is unremarkable except for elevated liver enzymes. I looked back at recent laboratory work that we have for patient and she always has normal liver enzymes. Patient winces to light touch and complains of pain to the entire abdomen, I could not elicit any specific tenderness anywhere. Right upper quadrant ultrasound revealed fatty infiltrative liver disease. Dr. Ogden was here, did evaluate patient, and I also called the ultrasound results to him. He states that he will do further workup on her liver. There were no masses evident on ultrasound today. Patient feels better after IV Reglan. Dr. Ogden agrees with my decision to send her home with Reglan. - Vital Signs Vital signs: Temp Pulse Resp BP Pulse Ox 97.4 F 72 22 H 154/105 H 97 01/17/17 09:30 01/17/17 09:30 01/17/17 14:00 01/17/17 15:19 01/17/17 15:19 - Laboratory Result Diagrams: 01/17/17 10:40 01/17/17 10:40 Laboratory results interpreted by me: 01/17/17 01/17/17 01/17/17 10:40 10:40 11:00 RBC 3.28 L Hgb 10.5 L Hct 30.3 L RDW 17.2 H Lymphocytes % 7.8 L Monocytes % 13.9 H Absolute Lymphocytes 0.3 L AST 55 H ALT 142 H Total Protein 5.9 L Urine Blood SMALL H Discharge - Discharge Clinical Impression: Elevated liver enzymes Nausea and vomiting Qualifiers: Vomiting type: unspecified Vomiting Intractability: non-intractable Qualified Code(s): R11.2 - Nausea with vomiting, unspecified Breast cancer Qualifiers: Breast location: unspecified site of breast Estrogen receptor status: unspecified Patient sex: female Laterality: unspecified laterality Qualified Code(s): C50.919 - Malignant neoplasm of unspecified site of unspecified female breast Lung cancer Qualifiers: Laterality: unspecified laterality Lung location: unspecified part of lung Qualified Code(s): C34.90 - Malignant neoplasm of unspecified part of unspecified bronchus or lung Condition: Stable Disposition: HOME, SELF-CARE Instructions: Intravenous (IV) Fluids ([facility]), Vomiting ([facility]) Additional Instructions: Return immediately for any new or worsening symptoms. Follow up with primary care provider, call tomorrow to make followup appointment. Prescriptions: Metoclopramide HCl [Reglan 10 mg Tablet] 10 mg PO Q8 PRN #30 tablet PRN Reason: Referrals: RACHEL BEAR MD [Primary Care Provider] - Follow up as needed VICKIE OGDEN MD [ACTIVE STAFF] - Follow up as needed
[2017-01-17 11:07] LABS: ABSOLUTE LYMPHOCYTES (AUTO) 0.3 10^3/uL (0.5-4.7); ABSOLUTE MONOCYTES (AUTO) 0.6 10^3/uL (0.1-1.4); ABSOLUTE NEUT (AUTO) 3.3 10^3/uL (1.7-8.2); BASOPHILS % (AUTO) 0.6 % (0-2); HEMATOCRIT 30.3 % (36.0-47.0); HEMOGLOBIN 10.5 g/dL (12.0-15.5); HGB HCT DIFFERENCE 1.2; LYMPHOCYTES % (AUTO) 7.8 % (13-45); MEAN CORPUSCULAR HEMOGLOBIN 32.1 pg (27.0-33.4); MEAN CORPUSCULAR HGB CONC 34.8 g/dL (32.0-36.0); MEAN CORPUSCULAR VOLUME 92 fl (80-97); MONOCYTES % (AUTO) 13.9 % (3-13); RED BLOOD COUNT 3.28 10^6/uL (3.72-5.28); RED CELL DISTRIBUTION WIDTH 17.2 % (11.5-14.0); SEGMENTED NEUTROPHILS % (AUTO) 76.7 % (42-78); WHITE BLOOD COUNT 4.2 10^3/uL (4.0-10.5)
[2017-01-17 11:17] LABS: APPEARANCE,URINE CLEAR; BILIRUBIN,URINE NEGATIVE (NEGATIVE); GLUCOSE, URINE NEGATIVE (NEGATIVE); KETONES,URINE NEGATIVE (NEGATIVE); LEUKOCYTE ESTERASE,URINE NEGATIVE (NEGATIVE); NITRITE,URINE NEGATIVE (NEGATIVE); PROTEIN,URINE NEGATIVE (NEGATIVE); URINE SPECIFIC GRAVITY 1.015; UROBILINOGEN,URINE NEGATIVE mg/dL (<2.0)
[2017-01-17 11:25] LABS: ALANINE AMINOTRANSFERASE 142 U/L (9-52); ALBUMIN 3.5 g/dL (3.5-5.0); ALKALINE PHOSPHATASE 72 U/L (38-126); ANION GAP 10 (5-19); ASPARTATE AMINO TRANSFERASE 55 U/L (14-36); BILIRUBIN,DIRECT 0.3 mg/dL (0.0-0.4); BILIRUBIN,TOTAL 0.5 mg/dL (0.2-1.3); BLOOD UREA NITROGEN 15 mg/dL (7-20); CALCIUM 8.9 mg/dL (8.4-10.2); CARBON DIOXIDE 25 mmol/L (22-30); CHLORIDE 106 mmol/L (98-107); CREATININE RESULT 0.78 mg/dL (0.52-1.25); GLUCOSE 100 mg/dL (75-110); POTASSIUM 4.2 mmol/L (3.6-5.0); SODIUM 141.1 mmol/L (137-145); TOTAL PROTEIN 5.9 g/dL (6.3-8.2)
[2017-01-17] MEDS ORDERED: ONDANSETRON HCL INJ/PF 4 MG/2 ML SDV IV ONE (14:02)
--- NOTE | 2017-01-17 14:06 | RADIOLOGY REPORT (SQ) ---
EXAM DESCRIPTION: U/S ABDOMEN LIMITED W/O DOP COMPLETED DATE/TIME: 01/17/2017 1:46 pm REASON FOR STUDY: elevated liver enz, n/v COMPARISON: None. TECHNIQUE: Dynamic and static grayscale images acquired of the abdomen and recorded on PACS. Additio nal selected color Doppler and spectral images recorded. LIMITATIONS: Midline bowel gas FINDINGS: PANCREAS: Midline pancreas unremarkable LIVER: Normal size. Mild increased echogenicity. No biliary ductal dilatation. LIVER VASCULATURE: Normal directional flow of the main portal vein and hepatic veins. GALLBLADDER: No stones. Normal wall thickness. No pericholecystic fluid. ULTRASOUND-DETECTED LEVIN'S SIGN: Negative. INTRAHEPATIC DUCTS AND COMMON DUCT: CBD and intrahepatic ducts normal caliber. No filling defects. INFERIOR VENA CAVA: Normal flow. AORTA: Ectasia of the infrarenal abdominal aorta, 3.4 x 3.4 cm in diameter. Recommend yearly follow- up screening abdominal aorta ultrasound. RIGHT KIDNEY: Normal size. Normal echogenicity. No solid or suspicious masses. No hydronephrosis. No calcifications. PERITONEAL AND RIGHT PLEURAL SPACE: No ascites or effusions. OTHER: No other significant findings. IMPRESSION: Echogenic liver from fatty infiltration or diffuse hepatocellular disease No biliary ductal dilatation or liver masses Ectasia infrarenal abdominal aorta, 3.4 x 3.4 cm in diameter. Yearly follow-up screening abdominal a mau ultrasound recommended TECHNICAL DOCUMENTATION: JOB ID: [id number]- All Rights Reserved
[2017-01-17 15:30] VITALS: BP 154/105
== END 2017-01-17 15:31 | disposition home or self-care (01) ==
LOC: ER 09:24
DX: C50.919 Malignant neoplasm of unspecified site of unspecified female breast (principal); C34.90 Malignant neoplasm of unspecified part of unspecified bronchus or lung; R74.8 Abnormal levels of other serum enzymes; R11.2 Nausea with vomiting, unspecified
CPT/HCPCS: 36591; 99284; 96361; 96374; 96375; 36415; 85025; 80053; 81001; 76705; J2765; J2405; J7030

== ENCOUNTER → 2017-01-17 | Outpatient (CLI) | payer MEDICARE, BC ==
--- NOTE | 2017-01-17 11:28 | RADIOLOGY REPORT (SQ) ---
EXAM DESCRIPTION: NM GASTRIC EMPTYING STUDY COMPLETED DATE/TIME: 01/17/2017 11:12 am REASON FOR STUDY: N/V (R11.2) R11.2 NAUSEA WITH VOMITING, UNSPECIFIED COMPARISON: None. RADIONUCLIDE AND DOSE: 2 millicuries Tc-99m Sulfur Colloid. The route of agent administration: Oral. TECHNIQUE: Serial images were to be acquired to 4 hours with each image recorded over a 30 minute ti me frame. Image intensity values plotted with respect to time with linear regression algorithm. LIMITATIONS: None. FINDINGS: Patient vomited before imaging commenced. . IMPRESSION: Patient vomited. TECHNICAL DOCUMENTATION: JOB ID: [id number] [employer]- All Rights Reserved
== END ==
LOC: MERGE 07:47 → RAD 07:47
PROVIDERS: ATTEND Internal Medicine Gastroenterology
DX: R11.2 Nausea with vomiting, unspecified (principal)
CPT/HCPCS: 78264; A9541

== ENCOUNTER 2017-01-21 11:10 | Day surgery (SDC) | payer MEDICARE, BC ==
[2017-01-21] MEDS ORDERED: ONDANSETRON HCL INJ/PF 4 MG/2 ML SDV ONE (11:14)
[2017-01-21] MEDS ORDERED: NALOXONE HCL INJ/PF 0.4 MG/1 ML SDV ONE (11:14)
[2017-01-21] MEDS ORDERED: DIPHENHYDRAMINE HCL 50 MG/ML VIAL ONE (11:14)
[2017-01-21] MEDS ORDERED: FLUMAZENIL INJ 0.5 MG/5 ML VIAL ONE (11:15)
[2017-01-21] MEDS ORDERED: GLUCAGON,HUMAN RECOMB 1 MG INJ ONE (11:15)
[2017-01-21] MEDS ORDERED: EPINEPHRINE INJ 1 MG/10 ML DISP.SYRIN ONE (11:15)
[2017-01-21] MEDS ORDERED: FENTANYL CITRATE INJ/PF 100 MCG/2 ML AMPUL ONE (11:15)
[2017-01-21] MEDS: MIDAZOLAM 2 MG/2 ML INJ ONE ×3 (11:47→11:56)
--- NOTE | 2017-01-21 12:04 | Operative Report ---
Operative Report DATE OF SURGERY: 01/21/17 Operative Report: The risks benefits and alternatives of the procedure explained to the patient in detail and informed consent is obtained.A GIF Olympus video scope was inserted into the patient's mouth and hypopharynx, the esophagus is identified intubated and insufflated ,the scope was then advanced through the esophagus stomach and duodenum, retroflexion maneuver is done, the esophagus stomach and first and second portions of the duodenum examined. Patient did not have any episodes of laryngospasm, or coughing during intubation of the esophagus. PREOPERATIVE DIAGNOSIS: Nausea vomiting epigastric discomfort POSTOPERATIVE DIAGNOSIS: Distal esophagitis status post biopsy. Mild gastritis previous biopsy done OPERATION: EGD with biopsy SURGEON: VICKIE OGDEN ANESTHESIA: Moderate Sedation - 5 mg of Versed, 50 mcg of fentanyl. Conscious sedation monitoring time 30 minutes. TISSUE REMOVED OR ALTERED: As noted above. No other specimens obtained. COMPLICATIONS: None. No changes of vital signs throughout the entire procedure. Patient is resting comfortably following the procedure ESTIMATED BLOOD LOSS: None. INTRAOPERATIVE FINDINGS: Adequate relaxation of the distal esophagus is noted. There does appear to be a small hiatal hernia. Distal esophagitis is noted. Biopsies obtained. Patient had a previous upper endoscopy recently at [facility]. Gastric biopsies were obtained at that point. No ulcers noted PROCEDURE: Patient tolerated procedure well. No immediate postprocedure complications are noted. Patient is sent back to recovery in good condition. Discharge date 01/21/2017. Discharge diet: Regular. Discharge activity: Regular. 2-3 week follow-up to discuss findings. Patient is instructed to call the office or proceed to the emergency room should there be any further problems or questions. We will wait on pathology. Results will be forwarded to oncologist as soon as they are available.
[2017-01-21 13:36] VITALS: BP 151/67
== END 2017-01-21 13:55 | disposition home or self-care (01) ==
LOC: END 11:10
PROVIDERS: ATTEND Internal Medicine Gastroenterology
PROC: 0DB38ZX Excision of Lower Esophagus, Via Natural or Artificial Opening Endoscopic, Diagnostic (ICD-10-PCS; principal; 2017-01-21 11:30)
DX: K20.9 Esophagitis, unspecified (principal); K29.70 Gastritis, unspecified, without bleeding; Z85.118 Personal history of other malignant neoplasm of bronchus and lung; Z85.3 Personal history of malignant neoplasm of breast
CPT/HCPCS: 43239; 88305 ×2; J2250; J3010; J0171; J1200; J1610; J2310; J2405; J3490

== ENCOUNTER → 2017-05-29 | Outpatient (CLI) | payer MEDICARE, BC ==
[2017-05-29 12:02] LABS: ANION GAP 8 (5-19); BLOOD UREA NITROGEN 20 mg/dL (7-20); CALCIUM 9.1 mg/dL (8.4-10.2); CARBON DIOXIDE 26 mmol/L (22-30); CHLORIDE 109 mmol/L (98-107); GLUCOSE 90 mg/dL (75-110); POTASSIUM 4.1 mmol/L (3.6-5.0); SODIUM 143.4 mmol/L (137-145)
[2017-05-30 12:47] LABS: CREATINE KINASE 112 U/L (30-135); IRON(TIBC) 72.4 ug/dL (37-170)
== END ==
LOC: OD 10:49
PROVIDERS: ATTEND Internal Medicine Cardiovascular Disease
DX: R25.2 Cramp and spasm (principal); I10 Essential (primary) hypertension; R11.2 Nausea with vomiting, unspecified; R55 Syncope and collapse; D64.9 Anemia, unspecified
CPT/HCPCS: 36415; 80048; 82306; 82550; 82728; 83540; 83550; 83735; 84443

== ENCOUNTER 2018-04-14 12:12 | Emergency (ER) | payer MEDICARE, BC ==
[2018-04-14] MEDS ORDERED: HYDROMORPHONE HCL INJ/PF 2 MG/ML AMPULE IV ONE ×2 (13:10→15:58)
[2018-04-14] MEDS ORDERED: ONDANSETRON HCL INJ/PF 4 MG/2 ML SDV IV PRN (13:10)
[2018-04-14] MEDS ORDERED: NORMAL SALINE 500 ML IV ONE (13:10)
--- NOTE | 2018-04-14 13:13 | ER Document Report ---
ED Medical Screen (RME) - General Chief Complaint: Abdominal Pain >50 Stated Complaint: ABDOMINAL PAIN/NAUSEA/VOMITING Time Seen by Provider: 04/14/18 12:59 Primary Care Provider: RACHEL BEAR MD [Primary Care Provider] - Follow up as needed Notes: 73 old female patient with a history of breast cancer and lung cancer. On chemo. To the emergency department with significant right lower quadrant tenderness. Does not have an appendix. Has had kidney stones in the past. Pain is sharp and stabbing. No fever. Mild vomiting. I have greeted and performed a rapid initial assessment of this patient. A comprehensive ED assessment and evaluation of the patient, analysis of test results and completion of the medical decision making process will be conducted by additional ED providers. TRAVEL OUTSIDE OF THE [place] IN LAST 30 DAYS: No - Related Data Allergies/Adverse Reactions: morphine Allergy (Severe, Verified 04/14/18 12:17) Hallucinations acetaminophen [From Tylenol-Codeine #3] Allergy (Verified 04/14/18 12:17) itching codeine [From Tylenol-Codeine #3] Allergy (Verified 04/14/18 12:17) itching shellfish derived Allergy (Verified 04/14/18 12:17) Anaphylaxis Bee Stings/Wasp Allergy (Severe, Uncoded 04/14/18 12:17) Anaphylaxis Past Medical History - Past Medical History Cardiac Medical History: Reports: Hx Hypertension Denies: Hx Coronary Artery Disease, Hx Heart Attack Pulmonary Medical History: Denies: Hx Asthma, Hx Bronchitis, Hx COPD, Hx Pneumonia Neurological Medical History: Denies: Hx Cerebrovascular Accident, Hx Seizures Renal/ Medical History: Denies: Hx Peritoneal Dialysis Malignancy Medical History: Reports: Hx Breast Cancer, Hx Lung Cancer - Small cell GI Medical History: Reports: Hx Gastroesophageal Reflux Disease Musculoskeltal Medical History: Denies Hx Arthritis Psychiatric Medical History: Denies: Hx Depression - anxiety Past Surgical History: Reports: Hx Appendectomy, Hx Mastectomy - Left side, Hx Orthopedic Surgery - right finger, left wrist, Hx Thyroid Surgery, Hx Tonsillectomy, Other - Port-A-Cath placement, thyroid surgery. Denies: Hx Hysterectomy - Immunizations Hx Diphtheria, Pertussis, Tetanus Vaccination: Yes History of Influenza Vaccine for 12/2016 - 05/2017 Season: No Review of Systems - Review of Systems Notes: Review of systems positive for the following: Right lower quadrant pain Physical Exam - Vital signs Vitals: Temp Pulse Resp BP Pulse Ox 98.3 F 88 20 171/95 H 95 04/14/18 12:33 04/14/18 12:33 04/14/18 12:04/14/18 12:33 04/14/18 12:33 - Abdominal Inspection: Normal Tenderness: Tender, Guarding Course - Vital Signs Vital signs: Temp Pulse Resp BP Pulse Ox 98.3 F 88 20 171/95 H 95 04/14/18 12:33 04/14/18 12:33 04/14/18 12:33 04/14/18 12:33 04/14/18 12:33 Doctor's Discharge - Discharge Referrals: RACHEL BEAR MD [Primary Care Provider] - Follow up as needed
[2018-04-14 13:41] LABS: HEMATOCRIT 40.1 % (36.0-47.0); HEMOGLOBIN 13.4 g/dL (12.0-15.5); MEAN CORPUSCULAR HEMOGLOBIN 30.5 pg (27.0-33.4); MEAN CORPUSCULAR HGB CONC 33.4 g/dL (32.0-36.0); MEAN CORPUSCULAR VOLUME 92 fl (80-97); PLATELET COUNT 262 10^3/uL (150-450); RED BLOOD COUNT 4.39 10^6/uL (3.72-5.28); RED CELL DISTRIBUTION WIDTH 15.3 % (11.5-14.0); WHITE BLOOD COUNT 9.4 10^3/uL (4.0-10.5)
[2018-04-14 13:55] LABS: ALANINE AMINOTRANSFERASE 31 U/L (9-52); ALBUMIN 4.7 g/dL (3.5-5.0); ALKALINE PHOSPHATASE 89 U/L (38-126); ANION GAP 12 (5-19); ASPARTATE AMINO TRANSFERASE 25 U/L (14-36); BILIRUBIN,DIRECT 0.2 mg/dL (0.0-0.4); BILIRUBIN,TOTAL 0.4 mg/dL (0.2-1.3); BLOOD UREA NITROGEN 28 mg/dL (7-20); CALCIUM 9.2 mg/dL (8.4-10.2); CARBON DIOXIDE 23 mmol/L (22-30); CHLORIDE 108 mmol/L (98-107); GLUCOSE 120 mg/dL (75-110); LIPASE 45.3 U/L (23-300); POTASSIUM 4.8 mmol/L (3.6-5.0); SODIUM 142.6 mmol/L (137-145); TOTAL PROTEIN 7.4 g/dL (6.3-8.2)
[2018-04-14 14:09] LABS: ABSOLUTE LYMPHOCYTES# (MANUAL) 0.3 10^3/uL (0.5-4.7); ABSOLUTE MONOCYTES # (MANUAL) 0.8 10^3/uL (0.1-1.4); ABSOLUTE NEUTROPHILS# (MANUAL) 8.3 10^3/uL (1.7-8.2); ANISOCYTOSIS SLIGHT; BASOPHILS % (MANUAL) 0 % (0-2); EOSINOPHILS % (MANUAL) 1 % (0-6); LYMPHOCYTES % (MANUAL) 3 % (13-45); MONOCYTES % (MANUAL) 8 % (3-13); PLATELET COMMENT ADEQUATE; SEGMENTED NEUTROPHILS % (MAN) 88 % (42-78); TOTAL CELLS COUNTED 100; TOXIC GRANULATION SLIGHT; TOXIC VACUOLATION PRESENT
[2018-04-14] MEDS ORDERED: METOCLOPRAMIDE HCL INJ/PF 10 MG/2 ML SDV IV ONE (14:21)
[2018-04-14] MEDS ORDERED: DIPHENHYDRAMINE HCL 50 MG/ML VIAL IV ONE (14:21)
--- NOTE | 2018-04-14 14:21 | ER Document Report ---
ED General - General Chief Complaint: Abdominal Pain >50 Stated Complaint: ABDOMINAL PAIN/NAUSEA/VOMITING Time Seen by Provider: 04/14/18 12:59 Primary Care Provider: RACHEL BEAR MD [Primary Care Provider] - Follow up as needed Mode of Arrival: Ambulatory Information source: Patient, Relative, [facility] Records Notes: 73-year-old female with hypertension, lung cancer, breast cancer, currently undergoing chemotherapy, anemia presents with acute onset of right lower quadra nt abdominal pain that started 10 hours prior to arrival awakening the patient from sleep. Patient describes the pain as stabbing, constant and associated with 2 episodes of vomiting. Patient's last bowel movement was 2 days prior to arrival. She does report a recent history of constipation over the last few weeks. Patient denies fever, chills, chest pain, shortness of breath, dysuria, hematuria. Patient does have a history of kidney stones, diverticulitis. Surgical history of appendectomy. TRAVEL OUTSIDE OF THE [place] IN LAST 30 DAYS: No - HPI Onset: This morning Onset/Duration: Sudden, Constant Quality of pain: Stabbing Severity: Moderate Associated symptoms: Nausea, Vomiting. denies: Chest pain, Diarrhea, Fever, Shortness of breath Exacerbated by: Movement Relieved by: Denies Similar symptoms previously: No Recently seen / treated by doctor: No - Related Data Allergies/Adverse Reactions: morphine Allergy (Severe, Verified 04/14/18 12:17) Hallucinations acetaminophen [From Tylenol-Codeine #3] Allergy (Verified 04/14/18 12:17) itching codeine [From Tylenol-Codeine #3] Allergy (Verified 04/14/18 12:17) itching shellfish derived Allergy (Verified 04/14/18 12:17) Anaphylaxis Bee Stings/Wasp Allergy (Severe, Uncoded 04/14/18 12:17) Anaphylaxis Past Medical History - General Information source: Patient, [facility] Records - Social History Smoking Status: Former Smoker Chew tobacco use (# tins/day): No Frequency of alcohol use: Rare Drug Abuse: None Lives with: Spouse/Significant other Family History: DM, None Patient has suicidal ideation: No Patient has homicidal ideation: No - Past Medical History Cardiac Medical History: Reports: Hx Hypertension Denies: Hx Coronary Artery Disease, Hx Heart Attack Pulmonary Medical History: Denies: Hx Asthma, Hx Bronchitis, Hx COPD, Hx Pneumonia Neurological Medical History: Denies: Hx Cerebrovascular Accident, Hx Seizures Renal/ Medical History: Denies: Hx Peritoneal Dialysis Malignancy Medical History: Reports: Hx Breast Cancer, Hx Lung Cancer - Small cell GI Medical History: Reports: Hx Gastroesophageal Reflux Disease Musculoskeletal Medical History: Denies Hx Arthritis Psychiatric Medical History: Denies: Hx Depression - anxiety Past Surgical History: Reports: Hx Appendectomy, Hx Breast Surgery - R mastectomy, Hx Mastectomy - Left side, Hx Orthopedic Surgery - right finger, left wrist, Hx Thyroid Surgery, Hx Tonsillectomy, Other - Port-A-Cath placement, thyroid surgery. Denies: Hx Hysterectomy - Immunizations Hx Diphtheria, Pertussis, Tetanus Vaccination: Yes Review of Systems - Review of Systems Notes: REVIEW OF SYSTEMS: CONSTITUTIONAL : Denies fever, chills, or sweats. Denies recent illness. Denies weight loss, recent hospitalizations. EENT: Denies visual changes, eye pain. Denies sore throat, oral lesions, difficulty swallowing. CARDIOVASCULAR: Denies chest pain. Denies palpitations. Denies lower extremity edema. RESPIRATORY: Denies cough. Denies shortness of breath, wheezing. GASTROINTESTINAL: Denies diarrhea. Denies blood in vomitus, stools, or per rectum. Denies black, tarry stools. GENITOURINARY: Denies difficulty urinating, painful urination, frequency, blood in urine, or vaginal discharge. MUSCULOSKELETAL: Denies back or neck pain or stiffness. Denies joint pain or swelling. SKIN: Denies rash, lesions or sores. HEMATOLOGIC : Denies easy bruising or bleeding. LYMPHATIC: Denies swollen glands. NEUROLOGICAL: Denies confusion or altered mental status. Denies loss of consciousness. Denies dizziness or lightheadedness. Denies headache. Denies weakness or paralysis. Denies problems difficulty with ambulation, slurred sp eech. Denies sensory loss, numbness, or tingling. Denies seizures. PSYCHIATRIC: Denies anxiety or stress. Denies depression, suicidal ideation, or homicidal ideation. Denies visual or auditory hallucinations. Physical Exam - Vital signs Vitals: Temp Pulse Resp BP Pulse Ox 98.3 F 88 20 171/95 H 95 04/14/18 12:33 04/14/18 12:33 04/14/18 12:33 04/14/18 12:33 04/14/18 12:33 - Notes Notes: PHYSICAL EXAMINATION: GENERAL: Well-appearing, well-nourished and in no acute distress. HEAD: Atraumatic, normocephalic. EYES: Pupils equal round and reactive to light, extraocular movements intact, conjunctiva are normal. ENT: Nares patent, oropharynx clear without exudates. Moist mucous membranes. NECK: Normal range of motion, supple without lymphadenopathy LUNGS: Breath sounds clear to auscultation bilaterally and equal. No wheezes rales or rhonchi. HEART: Regular rate and rhythm without murmurs ABDOMEN: Tenderness with palpation to the right lower quadrant, periumbilical region. No guarding, no rebound. No masses appreciated. Female : deferred Musculoskeletal: Normal range of motion, no pitting or edema. No cyanosis. NEUROLOGICAL: Cranial nerves grossly intact. Normal speech, normal gait. Normal sensory, motor exams PSYCH: Normal mood, normal affect. SKIN: Warm, Dry, normal turgor, no rashes or lesions noted. Course - Re-evaluation Re-evalutation: 04/14/18 22:48 Laboratory 04/14/18 04/14/18 04/14/18 13:24 13:24 15:12 WBC 9.4 RBC 4.39 Hgb 13.4 Hct 40.1 MCV 92 MCH 30.5 MCHC 33.4 RDW 15.3 H Plt Count 262 Total Counted 100 Seg Neutrophils % Not Reportable Seg Neuts % (Manual) 88 H Lymphocytes % Not Reportable Lymphocytes % (Manual) 3 L Monocytes % Not Reportable Monocytes % (Manual) 8 Eosinophils % Not Reportable Eosinophils % (Manual) 1 Basophils % Not Reportable Basophils % (Manual) 0 Absolute Neutrophils Not Reportable Abs Neuts (Manual) 8.3 H Absolute Lymphocytes Not Reportable Abs Lymphs (Manual) 0.3 L Absolute Monocytes Not Reportable Abs Monocytes (Manual) 0.8 Absolute Eosinophils Not Reportable Absolute Eos (Manual) 0.1 Absolute Basophils Not Reportable Abs Basophils (Manual) 0.0 Toxic Granulation SLIGHT Toxic Vacuolation PRESENT Platelet Comment ADEQUATE Anisocytosis SLIGHT Sodium 142.6 Potassium 4.8 Chloride 108 H Carbon Dioxide 23 Anion Gap 12 BUN 28 H Creatinine 1.16 Est GFR ( Amer) 56 L Est GFR (Non-Af Amer) 46 L Glucose 120 H Calcium 9.2 Total Bilirubin 0.4 Direct Bilirubin 0.2 Neonat Total Bilirubin Not Reportable Neonat Direct Bilirubin Not Reportable Neonat Indirect Bili Not Reportable AST 25 ALT 31 Alkaline Phosphatase 89 Total Protein 7.4 Albumin 4.7 Lipase 45.3 Urine Color YELLOW Urine Appearance CLOUDY Urine pH 5.0 Ur Specific [place] 1.021 Urine Protein NEGATIVE Urine Glucose (UA) NEGATIVE Urine Ketones NEGATIVE Urine Blood MODERATE H Urine Nitrite NEGATIVE Urine Bilirubin NEGATIVE Urine Urobilinogen NEGATIVE Ur Leukocyte Esterase NEGATIVE Urine WBC (Auto) 4 Urine RBC (Auto) 17 Squamous Epi Cells Auto 1 Uric Acid Cryst (Auto) MANY Urine Mucus (Auto) RARE Urine Ascorbic Acid NEGATIVE Abdomen/Pelvis CT 04/14/18 13:11 IMPRESSION: 1. There is a 4 mm obstructive calculus at the right ureterovesicular junction with moderate associated right hydronephrosis and hydroureter. 2. 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 3. Diverticulosis. Temp Pulse Resp BP Pulse Ox 97.5 F 103 H 18 140/100 H 95 04/14/18 16:36 04/14/18 16:36 04/14/18 16:36 04/14/18 16:36 04/14/18 16:36 04/14/18 22:49 73-year-old female with hypertension, lung cancer, breast cancer, currently undergoing chemotherapy, anemia presents with acute onset of right lower quadrant abdominal pain that started 10 hours prior to arrival awakening the patient from sleep. Patient describes the pain as stabbing, constant and associated with 2 episodes of vomiting. Patient's last bowel movement was 2 days prior to arrival. Patient does not appear toxic or dehydrated. She does appear to be in significant pain. Patient received Dilaudid, Toradol, Zofran during her ED course. On reevaluation patient does report improvement of pain and nausea. Patient found to have a 4 mm obstructive calculus in the right ureter at the UVJ. There is associated hydronephrosis. Patient does have a urologist and states that she will follow-up with him this week. Patient is tolerating fluids prior to discharge. Discussed findings of infrarenal abdomin al aortic aneurysm measuring 3.6 cm. Patient was evaluated and treated as appropriate for the patient's presenting symptoms and complaint, with consideration of any critical or life threatening conditions that may be associated with their obtained history and exam as noted above. All results were discussed with patient and her who is at the bedside. Patient provided the opportunity to ask questions, and express concerns. Patient was educated on treatments based on their presumed diagnosis as noted above. At this time we will discharge the patient with return precautions and follow-up recommendations. Verbal discharge instructions given a the bedside. Medication warnings reviewed. Patient is in agreement with this plan and has verbalized understanding of return precautions. After careful consideration I feel that that patient can be safely discharged from the emergency department, they were advised to followup with a primary care physician in 2-3 days. Dictation on this chart was performed using voice recognition software and may result in unintended grammatical, spelling, syntax or errors. 04/14/18 22:50 04/14/18 22:52 Presents with findings consistent with acute nephrolithiasis. Urinalysis does show hematuria. Laboratory otherwise unremarkable. Pain was able to be controlled here in the emergency department. Patient is tolerating oral intake. Clinical history is not consistent with an acute abdominal aneurysm or dissection, ND, or pulmonary embolus. Urinalysis does not show findings consistent with an infected stone. Vitals have remained within normal limits. Patient will be discharged with recommendations to follow-up with urology, pain medications, and return precautions. They are in agreement with this plan and verbalized indications return to emergency department. - Vital Signs Vital signs: Temp Pulse Resp BP Pulse Ox 97.5 F 103 H 18 140/100 H 95 04/14/18 16:36 04/14/18 16:36 04/14/18 16:36 04/14/18 16:36 04/14/18 16:36 - Laboratory Result Diagrams: 04/14/18 13:24 04/14/18 13:24 Laboratory results interpreted by me: 04/14/18 04/14/18 04/14/18 13:24 13:24 15:12 RDW 15.3 H Seg Neuts % (Manual) 88 H Lymphocytes % (Manual) 3 L Abs Neuts (Manual) 8.3 H Abs Lymphs (Manual) 0.3 L Chloride 108 H BUN 28 H Est GFR ( Amer) 56 L Est GFR (Non-Af Amer) 46 L Glucose 120 H Urine Blood MODERATE H - Diagnostic Test Radiology reviewed: Image reviewed, Reports reviewed Discharge - Discharge Clinical Impression: Right lower quadrant abdominal pain, Small cell lung cancer Urolithiasis Qualifiers: Urinary calculus location: other lower urinary tract location Qualified Code(s): N21.8 - Other lower urinary tract calculus Hematuria Qualifiers: Hematuria type: unspecified type Qualified Code(s): R31.9 - Hematuria, unspecified Breast cancer Qualifiers: Breast location: unspecified site of breast Estrogen receptor status: unspecified Patient sex: female Laterality: unspecified laterality Qualified Code(s): C50.919 - Malignant neoplasm of unspecified site of unspecified female breast Condition: Good Disposition: HOME, SELF-CARE Instructions: Abdominal Pain ([facility]), Antinausea Medication ([facility]), Hematuria ([facility]), Kidney Stone ([facility]), Pain Medication Injection ([facility]), Toradol Injection ([facility]) Additional Instructions: Your symptoms should improve over the course of the next one week. If you continue to have pain for greater than one week or your pain is not controlled with the pain medications that you have been sent home with you need to return to the emergency department. Please also return if you develop fever, persistent vomiting, or any other symptoms that are concerning to you. You should take ibuprofen 600 mg every 6 hours and use the oral morphine as prescribed only for pain not controlled by ibuprofen. You are also been sent home with a medication called Flomax to help pass the stone. You've been given Zofran to assist with nausea. Please follow-up with urology in the next 2-3 days. Please follow-up with urology. Prescriptions: Morphine Sulfate [Morphine Ir 15 Mg Tablet] 15 mg PO Q8H #10 tablet Ondansetron [Zofran Odt 4 mg Tablet] 1 - 2 tab PO Q4H PRN #15 tab.rapdis PRN Reason: For Nausea/Vomiting Tamsulosin HCl [Flomax 0.4 mg Cap.sr] 0.4 mg PO DAILY #7 cap.sr.24h Forms: Elevated Blood Pressure Referrals: RACHEL BEAR MD [Primary Care Provider] - Follow up as needed
--- NOTE | 2018-04-14 14:59 | RADIOLOGY REPORT (SQ) ---
EXAM DESCRIPTION: CT ABD/PELVIS NO ORAL OR IV COMPLETED DATE/TIME: 04/14/2018 2:26 pm REASON FOR STUDY: rlq pain COMPARISON: None. TECHNIQUE: CT scan of the abdomen and pelvis performed without intravenous or oral contrast. Images reviewed with lung, soft tissue, and bone windows. Reconstructed coronal and sagittal MPR images revi ewed. All images stored on PACS. All CT scanners at this facility use dose modulation, iterative reconstruction, and/or weight based d osing when appropriate to reduce radiation dose to as low as reasonably achievable (ALARA). [facility]: Dose Right [facility]: CareDose [facility]: Dose Right [facility]: Teradose 4D [facility]: Smart SmashFly RADIATION DOSE: CT Rad equipment meets quality standard of care and radiation dose reduction techniq ues were employed. CTDIvol: 15.3 mGy. DLP: 850 mGy-cm.mGy. LIMITATIONS: None. FINDINGS: LOWER CHEST: No significant findings. No nodules or infiltrates. NON-CONTRASTED LIVER, SPLEEN, ADRENALS: Evaluation limited by lack of IV contrast. No identified sign ificant masses. PANCREAS: No masses. No peripancreatic inflammatory changes. GALLBLADDER: No identified stones by CT criteria. No inflammatory changes to suggest cholecystitis. RIGHT KIDNEY AND URETER: No suspicious masses. Assessment limited by lack of IV contrast. There is a 4 mm obstructive calculus at the right ureterovesicular junction with moderate associated right hydr onephrosis and hydroureter. LEFT KIDNEY AND URETER: No suspicious masses. Assessment limited by lack of IV contrast. No signifi cant calcifications. No hydronephrosis or hydroureter. AORTA AND RETROPERITONEUM: Calcific atherosclerosis with a focal saccular aneurysm of the infrarenal abdominal aorta measuring 3.7 x 3.6 cm. BOWEL AND PERITONEAL CAVITY: No obvious masses or inflammatory changes. No free fluid. Severe sigmoi d diverticulosis without evidence of acute diverticulitis. APPENDIX: Normal. PELVIS, BLADDER, AND ABDOMINAL WALL:No abnormal masses. No free fluid. Bladder normal. BONES: No significant findings. OTHER: No other significant finding. IMPRESSION: 1. There is a 4 mm obstructive calculus at the right ureterovesicular junction with mode rate associated right hydronephrosis and hydroureter. 2. 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 3. Diverticulosis. COMMENT: Quality ID # [id number]: Final reports with documentation of one or more dose reduction techniques (e.g., Automated exposure control, adjustment of the mA and/or kV according to patient size, use of iterative reconstruction technique) TECHNICAL DOCUMENTATION: JOB ID: [id number] [employer]- All Rights Reserved Reading location - IP/workstation name: [email or web address]
[2018-04-14 15:50] LABS: APPEARANCE,URINE CLOUDY; BILIRUBIN,URINE NEGATIVE (NEGATIVE); COLOR,URINE YELLOW; GLUCOSE, URINE NEGATIVE (NEGATIVE); KETONES,URINE NEGATIVE (NEGATIVE); LEUKOCYTE ESTERASE,URINE NEGATIVE (NEGATIVE); NITRITE,URINE NEGATIVE (NEGATIVE); PROTEIN,URINE NEGATIVE (NEGATIVE); URIC ACID CRYSTALS,URINE MANY /HPF; URINE SPECIFIC GRAVITY 1.021; UROBILINOGEN,URINE NEGATIVE mg/dL (<2.0)
[2018-04-14] MEDS ORDERED: ONDANSETRON HCL INJ/PF 4 MG/2 ML SDV IV ONE (15:57)
[2018-04-14] MEDS ORDERED: KETOROLAC TROMETHAMINE INJ/PF 30 MG/1 ML SDV IV ONE (15:57)
[2018-04-14] MEDS ORDERED: TAMSULOSIN HCL 0.4 MG CAP.SR.24H PO ONE (15:57)
[2018-04-14 16:38] VITALS: BP 140/100
== END 2018-04-14 16:38 | disposition home or self-care (01) ==
LOC: ER 12:12
DX: N13.2 Hydronephrosis with renal and ureteral calculous obstruction (principal); R31.9 Hematuria, unspecified; I71.4 Abdominal aortic aneurysm, without rupture; K57.30 Diverticulosis of large intestine without perforation or abscess without bleeding; C34.90 Malignant neoplasm of unspecified part of unspecified bronchus or lung; C50.919 Malignant neoplasm of unspecified site of unspecified female breast; Z79.899 Other long term (current) drug therapy; R11.2 Nausea with vomiting, unspecified; R10.31 Right lower quadrant pain; R10.813 Right lower quadrant abdominal tenderness; R10.815 Periumbilic abdominal tenderness; I10 Essential (primary) hypertension; Z87.891 Personal history of nicotine dependence; Z90.49 Acquired absence of other specified parts of digestive tract; Z88.5 Allergy status to narcotic agent; Z88.6 Allergy status to analgesic agent; Z87.892 Personal history of anaphylaxis; Z91.013 Allergy to seafood; Z91.030 Bee allergy status
CPT/HCPCS: 96376; 99284; 96361; 96374; 96375; 36415; 83690; 85025; 80053; 81001; 74176; J1200; J1885; J2765; J1170; A9270; J2405; J7040

== ENCOUNTER → 2018-09-23 | Outpatient (CLI) | payer MEDICARE, BC ==
[2018-09-23 13:38] LABS: ANION GAP 8 (5-19); BLOOD UREA NITROGEN 30 mg/dL (7-20); CALCIUM 9.2 mg/dL (8.4-10.2); CARBON DIOXIDE 27 mmol/L (22-30); CHLORIDE 105 mmol/L (98-107); GLUCOSE 103 mg/dL (75-110); POTASSIUM 4.6 mmol/L (3.6-5.0); SODIUM 140.1 mmol/L (137-145)
== END ==
LOC: LAB 12:49
PROVIDERS: ATTEND Internal Medicine Cardiovascular Disease
DX: E03.9 Hypothyroidism, unspecified (principal); I10 Essential (primary) hypertension; I47.1 Supraventricular tachycardia; R06.02 Shortness of breath; Z79.899 Other long term (current) drug therapy
CPT/HCPCS: 36415; 80048; 83880; 84443

== ENCOUNTER 2019-02-16 10:44 | Observation (INO) | payer MEDICARE, BC ==
[2019-02-16 11:08] LABS: ABSOLUTE EOSINOPHILS # (AUTO) 0.1 10^3/uL (0.0-0.6); ABSOLUTE LYMPHOCYTES (AUTO) 0.4 10^3/uL (0.5-4.7); ABSOLUTE MONOCYTES (AUTO) 0.7 10^3/uL (0.1-1.4); ABSOLUTE NEUT (AUTO) 5.8 10^3/uL (1.7-8.2); BASOPHILS % (AUTO) 0.3 % (0-2); EOSINOPHILS % (AUTO) 1.3 % (0-6); HEMATOCRIT 38.1 % (36.0-47.0); HEMOGLOBIN 12.8 g/dL (12.0-15.5); LYMPHOCYTES % (AUTO) 5.2 % (13-45); MEAN CORPUSCULAR HEMOGLOBIN 31.2 pg (27.0-33.4); MEAN CORPUSCULAR HGB CONC 33.7 g/dL (32.0-36.0); MEAN CORPUSCULAR VOLUME 93 fl (80-97); MONOCYTES % (AUTO) 9.8 % (3-13); PLATELET COUNT 286 10^3/uL (150-450); RED BLOOD COUNT 4.12 10^6/uL (3.72-5.28); RED CELL DISTRIBUTION WIDTH 15.5 % (11.5-14.0); SEGMENTED NEUTROPHILS % (AUTO) 83.4 % (42-78); TOTAL CELLS COUNTED % (AUTO) 100 %; WHITE BLOOD COUNT 6.9 10^3/uL (4.0-10.5)
[2019-02-16 11:15] LABS: INTERNATIONAL RATION (INR) 0.95; PROTHROMBIN TIME 12.7 SEC (11.4-15.4)
[2019-02-16 11:34] LABS: ALBUMIN 4.5 g/dL (3.5-5.0); ALKALINE PHOSPHATASE 94 U/L (38-126); ANION GAP 15 (5-19); ASPARTATE AMINO TRANSFERASE 34 U/L (14-36); BILIRUBIN,DIRECT 0.2 mg/dL (0.0-0.4); BILIRUBIN,TOTAL 0.6 mg/dL (0.2-1.3); BLOOD UREA NITROGEN 46 mg/dL (7-20); CALCIUM 9.2 mg/dL (8.4-10.2); CARBON DIOXIDE 27 mmol/L (22-30); CHLORIDE 98 mmol/L (98-107); GLUCOSE 118 mg/dL (75-110); POTASSIUM 4.4 mmol/L (3.6-5.0); TOTAL PROTEIN 7.6 g/dL (6.3-8.2)
--- NOTE | 2019-02-16 11:47 | ER Document Report ---
ED General - General Stated Complaint: HYPOTENSION TRAVEL OUTSIDE OF THE [place] IN LAST 30 DAYS: No - HPI Notes: 74wf h/o breast cancer and small cell lung cancer status post extensive doses of radiation and chemotherapy, on continued immunotherapy injections per EMS, reports she is had nausea vomiting and diarrhea for few days now. Was driving to the pharmacy she told EMS who were called for by standards saying she was confused in her car. When they arrived she was alert and talking and then her sugar was normal but her blood pressure was low in the 80s over 60s "", they obtained a 20-gauge in the right arm noted she had a port john labs and started IV normal saline her heart rate remained in the 70s and she remained neurologically nonfocal and awake in route. On arrival to the ED she is talking no acute distress. Heart rate still 70s blood pressure now over 100 systolic. Also has history of: Anal fissure, int hemorrhoids,diverticulosis. Small sessile descending colon polyp removed via biopsy forceps - Related Data Allergies/Adverse Reactions: morphine Allergy (Severe, Verified 02/16/19 11:35) Hallucinations acetaminophen [From Tylenol-Codeine #3] Allergy (Verified 02/16/19 11:35) itching codeine [From Tylenol-Codeine #3] Allergy (Verified 02/16/19 11:35) itching shellfish derived Allergy (Verified 02/16/19 11:35) Anaphylaxis Bee Stings/Wasp Allergy (Severe, Uncoded 02/16/19 11:35) Anaphylaxis Past Medical History - General Information source: Patient, Emergency [facility] Personnel - Social History Smoking Status: Former Smoker Family History: None, Reviewed & Not Pertinent, DM Patient has suicidal ideation: No Patient has homicidal ideation: No - Past Medical History Cardiac Medical History: Reports: Hx Hypertension Denies: Hx Coronary Artery Disease, Hx Heart Attack Pulmonary Medical History: Denies: Hx Asthma, Hx Bronchitis, Hx COPD, Hx Pneumonia Neurological Medical History: Denies: Hx Cerebrovascular Accident, Hx Seizures Renal/ Medical History: Denies: Hx Peritoneal Dialysis Malignancy Medical History: Reports: Hx Breast Cancer, Hx Lung Cancer - Small cell GI Medical History: Reports: Hx Gastroesophageal Reflux Disease Musculoskeletal Medical History: Denies Hx Arthritis Psychiatric Medical History: Denies: Hx Depression - anxiety Past Surgical History: Reports: Hx Appendectomy, Hx Breast Surgery - R mastectomy, Hx Mastectomy - Left side, Hx Orthopedic Surgery - right finger, left wrist, Hx Thyroid Surgery, Hx Tonsillectomy, Other - Port-A-Cath placement, thyroid surgery. Denies: Hx Hysterectomy - Immunizations Hx Diphtheria, Pertussis, Tetanus Vaccination: Yes Review of Systems - Review of Systems Constitutional: See HPI EENT: No symptoms reported, See HPI Cardiovascular: No symptoms reported Respiratory: No symptoms reported Gastrointestinal: See HPI, Diarrhea, Nausea, Vomiting, Poor appetite, Poor fluid intake. denies: Abdominal pain, Constipation, Blood streaked bowels, Blood in vomit, Black stools, Rectal bleeding, Fecal incontinence Genitourinary: See HPI. denies: Dysuria, Discharge, Frequency, Flank pain, Hematuria, Incontinence, Urgency, Retention Female Genitourinary: No symptoms reported Musculoskeletal: No symptoms reported Skin: No symptoms reported Hematologic/Lymphatic: No symptoms reported Neurological/Psychological: No symptoms reported Physical Exam - Vital signs Vitals: Pulse Ox 98 02/16/19 10:59 Interpretation: Normal - Notes Notes: Initially before fluids appears fatigued easily arousable wakes and cooperates interview. Moving all extremity not actively vomiting during our interview no diarrhea for the number of hours initially in the emergency department then did have a loose stool I did not observe characteristic - General General appearance: Appears well, Alert - HEENT Head: Normocephalic, Atraumatic Eyes: Normal Pupils: PERRL Sinus: Normal Nasal: Normal Mouth/Lips: No: Lesions Mucous membranes: Dry - Respiratory Respiratory status: No respiratory distress Chest status: Nontender, Other - Right tunneled port nontender no surrounding erythema fluctuance.. No: Pain on movement, Splinting Breath sounds: Normal Chest palpation: Normal - Cardiovascular Rhythm: Regular Heart sounds: Normal auscultation Murmur: No - Abdominal Inspection: Normal Distension: No distension Bowel sounds: Normal Tenderness: Nontender Organomegaly: No organomegaly - Back Back: Normal, Nontender - Extremities General upper extremity: Normal inspection, Nontender, Normal color, Normal ROM, Normal temperature General lower extremity: Normal inspection, Nontender, Normal color, Normal ROM, Normal temperature, Normal weight bearing. No: Jennifer's sign - Neurological Neuro grossly intact: Yes Cognition: Normal Orientation: AAOx4 [place] Coma Scale Eye Opening: Spontaneous Karina Coma Scale Verbal: Oriented Karina Coma Scale Motor: Obeys Commands [place] Coma Scale Total: 15 Speech: Normal Motor strength normal: LUE, RUE, LLE, RLE Sensory: Normal - Psychological Associated symptoms: Normal affect, Normal mood - Skin Skin Temperature: Warm Skin Moisture: Dry Skin Color: Normal Course - Re-evaluation Re-evalutation: 02/16/19 11:45 Portable 1 view chest x-ray reviewed she is rotated and is poor inspiratory effort but compared to her 2 view in 2017 there is no real change in the left hilar and mediastinal border some prominence of the vasculature there and she does have a little bit of blunting of the low left cardiomediastinal silhouette the port this in the right chest wall entering the superior vena cava is still there. No other pneumothoraces or other isaiah consolidations on this single view. On lab review: - Vital Signs Vital signs: Temp Pulse Resp BP Pulse Ox 98.0 F 75 17 113/60 98 02/16/19 20:29 02/16/19 20:29 02/16/19 20:29 02/16/19 20:29 02/16/19 20:29 - Laboratory Result Diagrams: 02/16/19 10:30 02/16/19 10:30 Laboratory results interpreted by me: 02/16/19 02/16/19 02/16/19 10:30 10:30 10:30 RDW 15.5 H Lymph % (Auto) 5.2 L Absolute Lymphs (auto) 0.4 L Seg Neutrophils % 83.4 H BUN 46 H Creatinine 2.32 H Est GFR ( Amer) 25 L Est GFR (MDRD) Non-Af 21 L Glucose 118 H Phosphorus 5.0 H TSH 16.20 H Urine Protein Urine Ketones Urine Blood Leukocyte Esterase Rfl 02/16/19 12:20 RDW Lymph % (Auto) Absolute Lymphs (auto) Seg Neutrophils % BUN Creatinine Est GFR ( Amer) Est GFR (MDRD) Non-Af Glucose Phosphorus TSH Urine Protein 30 H Urine Ketones TRACE H Urine Blood SMALL H Leukocyte Esterase Rfl TRACE H - Diagnostic Test Radiology results interpreted by me: 02/16/19 11:56 Reviewed interpretation of early 2019 CT abdomen pelvis: 4 mm obstructive calculus R UVJ W/moderate hydronephrosis, hydroureter. Saccular aneurysm infrarenal ABD Ao 3.7 X 3.6cm. Diverticulosis Discharge - Discharge Clinical Impression: Acute renal insufficiency, Hypotension, Nausea & vomiting, Diarrhea Condition: Fair Disposition: ADMITTED INPATIENT Admitting Provider: chula anderson ([place] hospitalist) Unit Admitted: Medical Floor
--- NOTE | 2019-02-16 11:50 | RADIOLOGY REPORT (SQ) ---
EXAM DESCRIPTION: CHEST SINGLE VIEW COMPLETED DATE/TIME: 02/16/2019 11:39 am REASON FOR STUDY: bed 19 sepsis protocol COMPARISON: 12/28/2016 EXAM PARAMETERS: NUMBER OF VIEWS: One view. TECHNIQUE: Single frontal radiographic view of the chest acquired. RADIATION DOSE: NA LIMITATIONS: None. FINDINGS: LUNGS AND PLEURA: Ill-defined right suprahilar opacity appear no pleural effusion or pneum othorax. MEDIASTINUM AND HILAR STRUCTURES: Widening of the right paratracheal stripe, similar prior. Right norman prahilar opacity HEART AND VASCULAR STRUCTURES: Normal heart size. Unfolded thoracic atherosclerotic aorta. BONES: No acute findings. HARDWARE: Right internal jugular based chest port with catheter tip at cavoatrial junction. OTHER: No other significant finding. IMPRESSION: Ill-defined right suprahilar opacity, possibly infectious. Recommend follow-up chest ra diograph or CT to ensure resolution. TECHNICAL DOCUMENTATION: JOB ID: [id number] [employer]- All Rights Reserved Reading location - IP/workstation name: [email or web address]
[2019-02-16] MEDS ORDERED: RINGERS SOLUTION,LACTATED 1,000 ML IV ONE (11:58)
[2019-02-16 12:34] LABS: APPEARANCE,URINE SLIGHTLY-CLOUDY; BILIRUBIN,URINE NEGATIVE (NEGATIVE); COLOR,URINE YELLOW; GLUCOSE, URINE NEGATIVE (NEGATIVE); KETONES,URINE TRACE mg/dL (NEGATIVE); PROTEIN,URINE 30 mg/dL (NEGATIVE); URINE SPECIFIC GRAVITY 1.017; UROBILINOGEN,URINE NEGATIVE mg/dL (<2.0)
[2019-02-16 12:42] LABS: VENOUS BLOOD BASE EXCESS 0.1 mmol/L; VENOUS BLOOD HCO3 25.6 mmol/L (20-32); VENOUS BLOOD PH 7.37 (7.30-7.42)
--- NOTE | 2019-02-16 12:51 | EKG REPORT ---
SEVERITY:- ABNORMAL ECG - SINUS RHYTHM PROBABLE LEFT VENTRICULAR HYPERTROPHY : Confirmed by: Sidney Zavaleta MD 16-Feb-2019 12:50:48
[2019-02-16] MEDS ORDERED: ONDANSETRON HCL INJ/PF 4 MG/2 ML SDV IV ONE (13:02)
[2019-02-16] MEDS ORDERED: ONDANSETRON HCL INJ/PF 4 MG/2 ML SDV IV PRN (13:15)
[2019-02-16] MEDS ORDERED: TEMAZEPAM 15 MG CAPSULE PO PRN (13:15)
[2019-02-16] MEDS ORDERED: MAG HYDROX/AL HYDROX/SIMETH SUSP 30 ML UDCUP PO PRN (13:15)
--- NOTE | 2019-02-16 13:24 | PDOC H&P ---
History of Present Illness Admission Date/PCP: 02/16/19 12:43 RACHEL BEAR MD Patient complains of: Hypotension History of Present Illness: VICTORIANO TRUJILLO is a 74 year old female with a past medical history of breast cancer and small cell lung cancer with extensive dose radiation and chemotherapy and continued on immunotherapy injections reports she had nausea and vomiting diarrhea for last few days. Patient states to them the pharmacy she told EMS who were called for her by [facility] that she was confused in the car. When arrived she is alert and talking and then her blood sugar was normal but her blood pressure was low 80s over 60s. Patient brought to the ER given IV fluids and found to have acute renal failure. She had no treatment prior arrival no true aggravating factors other than her previous nausea vomiting diarrhea Past Medical History Cardiac Medical History: Reports: Hypertension Denies: Coronary Artery Disease, Myocardial Infarction Pulmonary Medical History: Denies: Asthma, Bronchitis, Chronic Obstructive Pulmonary Disease (COPD), Pneumonia Neurological Medical History: Denies: Seizures Malignancy Medical History: Reports: Breast Cancer, Lung Cancer - Small cell GI Medical History: Reports: Gastroesophageal Reflux Disease Musculoskeltal Medical History: Denies: Arthritis Psychiatric Medical History: Denies: Depression - anxiety Hematology: Reports: Anemia Past Surgical History Past Surgical History: Reports: Appendectomy, Mastectomy - Left side, Orthopedic Surgery - right finger, left wrist, Tonsillectomy, Other - Port-A-Cath placement, thyroid surgery Denies: Hysterectomy Social History Information Source: Patient Lives with: Family Smoking Status: Former Smoker Frequency of Alcohol Use: None Hx Recreational Drug Use: No Drugs: None Hx Prescription Drug Abuse: No - Advance Directive Resuscitation Status: Full Code Family History Family History: DM Parental Family History Reviewed: Yes Children Family History Reviewed: Yes Sibling(s) Family History Reviewed.: Yes Medication/Allergy Home Medications: Levothyroxine Sodium [Synthroid 150 Mcg Tablet] 137 mcg PO DAILY 04/14/12 Benazepril HCl [Lotensin 20 mg Tablet] 20 mg PO Q12 12/29/16 Carvedilol [Coreg 25 mg Tablet] 1 tab PO Q12 12/29/16 Metoclopramide HCl [Reglan] 10 mg PO Q8 01/21/17 Ondansetron HCl [Zofran] 4 mg PO PRN PRN 01/21/17 Morphine Sulfate [Morphine Ir 15 Mg Tablet] 15 mg PO Q8H #10 tablet 04/14/18 Ondansetron [Zofran Odt 4 mg Tablet] 1 - 2 tab PO Q4H PRN #15 tab.rapdis 04/14/18 Tamsulosin HCl [Flomax 0.4 mg Cap.sr] 0.4 mg PO DAILY #7 cap.sr.24h 04/14/18 Allergies/Adverse Reactions: morphine Allergy (Severe, Verified 02/16/19 11:35) Hallucinations acetaminophen [From Tylenol-Codeine #3] Allergy (Verified 02/16/19 11:35) itching codeine [From Tylenol-Codeine #3] Allergy (Verified 02/16/19 11:35) itching shellfish derived Allergy (Verified 02/16/19 11:35) Anaphylaxis Bee Stings/Wasp Allergy (Severe, Uncoded 02/16/19 11:35) Anaphylaxis Review of Systems Constitutional: ABSENT: chills, fever(s), headache(s), weight gain, weight loss Eyes: ABSENT: visual disturbances Ears: ABSENT: hearing changes Cardiovascular: ABSENT: chest pain, dyspnea on exertion, edema, orthropnea, palpitations Respiratory: ABSENT: cough, hemoptysis Gastrointestinal: PRESENT: diarrhea, nausea, vomiting. ABSENT: abdominal pain, constipation, hematemesis, hematochezia Genitourinary: ABSENT: dysuria, hematuria Musculoskeletal: ABSENT: joint swelling Integumentary: ABSENT: rash, wounds Neurological: ABSENT: abnormal gait, abnormal speech, confusion, dizziness, focal weakness, syncope Psychiatric: ABSENT: anxiety, depression, homidical ideation, suicidal ideation Endocrine: ABSENT: cold intolerance, heat intolerance, polydipsia, polyuria Hematologic/Lymphatic: ABSENT: easy bleeding, easy bruising Physical Exam Vital Signs: Temp Pulse Resp BP Pulse Ox 97.6 F 71 15 100/66 98 02/16/19 11:06 02/16/19 11:06 02/16/19 13:00 02/16/19 12:41 02/16/19 13:00 Intake & Output 02/15/19 02/16/19 02/17/19 06:59 06:59 06:59 Weight 89.358 kg General appearance: PRESENT: no acute distress, well-developed, well-nourished Head exam: PRESENT: atraumatic, normocephalic Eye exam: PRESENT: conjunctiva pink, EOMI, PERRLA. ABSENT: scleral icterus Ear exam: PRESENT: normal external ear exam Mouth exam: PRESENT: moist, tongue midline Neck exam: ABSENT: carotid bruit, JVD, lymphadenopathy, thyromegaly Respiratory exam: PRESENT: clear to auscultation emi. ABSENT: rales, rhonchi, wheezes Cardiovascular exam: PRESENT: RRR. ABSENT: diastolic murmur, rubs, systolic murmur Pulses: PRESENT: normal dorsalis pedis pul Vascular exam: PRESENT: normal capillary refill GI/Abdominal exam: PRESENT: normal bowel sounds, soft. ABSENT: distended, guarding, mass, organolmegaly, rebound, tenderness Rectal exam: PRESENT: deferred Extremities exam: PRESENT: full ROM. ABSENT: calf tenderness, clubbing, pedal edema Neurological exam: PRESENT: alert, awake, oriented to person, oriented to place, oriented to time, oriented to situation, CN II-XII grossly intact. ABSENT: motor sensory deficit Psychiatric exam: PRESENT: appropriate affect, normal mood. ABSENT: homicidal ideation, suicidal ideation Skin exam: PRESENT: dry, intact, warm, other - Bilateral mastectomy. ABSENT: cyanosis, rash Results Laboratory Results: 02/16/19 10:30 02/16/19 10:30 02/16/19 02/16/19 02/16/19 10:30 10:30 10:30 WBC 6.9 RBC 4.12 Hgb 12.8 Hct 38.1 MCV 93 MCH 31.2 MCHC 33.7 RDW 15.5 H Plt Count 286 Seg Neutrophils % 83.4 H VBG pH VBG pCO2 VBG HCO3 VBG Base Excess Sodium 139.7 Potassium 4.4 Chloride 98 Carbon Dioxide 27 Anion Gap 15 BUN 46 H Creatinine 2.32 H Est GFR ( Amer) 25 L Glucose 118 H Calcium 9.2 Phosphorus 5.0 H Magnesium 2.2 Total Bilirubin 0.6 AST 34 Alkaline Phosphatase 94 Total Protein 7.6 Albumin 4.5 TSH 16.20 H Urine Color Urine Appearance Urine pH Ur Specific [place] Urine Protein Urine Glucose (UA) Urine Ketones Urine Blood Urine RBC (Auto) 02/16/19 02/16/19 12:09 12:20 WBC RBC Hgb Hct MCV MCH MCHC RDW Plt Count Seg Neutrophils % VBG pH 7.37 VBG pCO2 45.0 VBG HCO3 25.6 VBG Base Excess 0.1 Sodium Potassium Chloride Carbon Dioxide Anion Gap BUN Creatinine Est GFR ( Amer) Glucose Calcium Phosphorus Magnesium Total Bilirubin AST Alkaline Phosphatase Total Protein Albumin TSH Urine Color YELLOW Urine Appearance SLIGHTLY-CLOUDY Urine pH 5.0 Ur Specific [place] 1.017 Urine Protein 30 H Urine Glucose (UA) NEGATIVE Urine Ketones TRACE H Urine Blood SMALL H Urine RBC (Auto) 1 02/16/19 10:30 Troponin I < 0.012 Impressions: Chest X-Ray 02/16/19 10:50 IMPRESSION: Ill-defined right suprahilar opacity, possibly infectious. Recommend follow-up chest radiograph or CT to ensure resolution. Assessment and Plan - Diagnosis (1) Acute renal failure Is this a current diagnosis for this admission?: Yes Plan: 02/16/2019-admit to [facility]. Normal saline 175 mL an hour overnight repeat BMP in the a.m. this acute renal failure most likely secondary dehydration from her nausea vomiting diarrhea. (2) Diarrhea Is this a current diagnosis for this admission?: Yes Plan: 02/16/2019-resolved at this time continue to follow (3) Nausea & vomiting Is this a current diagnosis for this admission?: Yes Plan: 02/16/2019-Zofran 4 mg IV every 4 hours. (4) Hyperphosphatemia Is this a current diagnosis for this admission?: Yes Plan: 02/16/2019-most likely secondary to dehydration. Hydrate overnight repeat phosphorus in the morning. - Time Time Spent with patient: 35 or more minutes
[2019-02-16] MEDS: NORMAL SALINE 1000 ML 1,000 ML IV PRN ×4 (14:16→18:38)
[2019-02-16] MEDS ORDERED: PSYLLIUM SEED-SF 5.85 GM PACKET PO SCH (19:00)
[2019-02-17] MEDS: NORMAL SALINE 1000 ML 1,000 ML IV PRN (03:43)
[2019-02-17 04:57] LABS: HEMATOCRIT 28.5 % (36.0-47.0); MEAN CORPUSCULAR HEMOGLOBIN 31.5 pg (27.0-33.4); MEAN CORPUSCULAR HGB CONC 34.3 g/dL (32.0-36.0); MEAN CORPUSCULAR VOLUME 92 fl (80-97); PLATELET COUNT 189 10^3/uL (150-450); RED CELL DISTRIBUTION WIDTH 15.5 % (11.5-14.0)
[2019-02-17 04:59] LABS: HEMOGLOBIN 9.8 g/dL (12.0-15.5)
[2019-02-17 05:18] LABS: ANION GAP 6 (5-19); BLOOD UREA NITROGEN 28 mg/dL (7-20); CALCIUM 7.7 mg/dL (8.4-10.2); CARBON DIOXIDE 27 mmol/L (22-30); CHLORIDE 107 mmol/L (98-107); GLUCOSE 92 mg/dL (75-110); POTASSIUM 3.5 mmol/L (3.6-5.0)
[2019-02-17] MEDS ORDERED: DIPHENOXYLATE HCL/ATROP SULF 2.5-0.025 MG TABLET PO PRN (06:24)
[2019-02-17] MEDS ORDERED: NORMAL SALINE 1000 ML 1,000 ML IV PRN (06:50)
[2019-02-17] MEDS ORDERED: CEFTRIAXONE 1 GM/D5W RTU 1 GM/50 ML RTUPB IV SCH (08:00)
--- NOTE | 2019-02-17 08:23 | PDOC DISCHARGE SUMMARY ---
Impression - Admit/DC Date/PCP Admission Date/Primary Care Provider: 02/16/19 12:43 RACHEL BEAR MD Discharge Date: 02/17/19 - Discharge Diagnosis (1) Acute renal failure Is this a current diagnosis for this admission?: Yes (2) Diarrhea Is this a current diagnosis for this admission?: Yes (3) Nausea & vomiting Is this a current diagnosis for this admission?: Yes (4) Hyperphosphatemia Is this a current diagnosis for this admission?: Yes - Additional Information Resuscitation Status: Full Code Discharge Diet: As Tolerated Discharge Activity: Activity As Tolerated Referrals: RACHEL BEAR MD [Primary Care Provider] - Follow up as needed Prescriptions: Cefuroxime Axetil [Ceftin 500 mg Tablet] 1 tab PO BID #20 tablet Ondansetron [Zofran Odt 4 mg Tablet] 4 mg PO Q4HP PRN #30 tab.rapdis PRN Reason: Home Medications: Amlodipine Besylate [Norvasc 5 mg Tablet] 5 mg PO QHS 02/16/19 Benazepril HCl [Lotensin 20 mg Tablet] 20 mg PO DAILY 02/16/19 Carvedilol [Coreg 25 mg Tablet] 25 mg PO BID 02/16/19 Diphenoxylate HCl/Atrop Sulf [Lomotil 2.5 mg Tablet] 1 each PO QIDP PRN 02/16/19 Hydrochlorothiazide 12.5 mg PO QAM 02/16/19 Mirabegron [Myrbetriq] 50 mg PO DAILY 02/16/19 Cefuroxime Axetil [Ceftin 500 mg Tablet] 1 tab PO BID #20 tablet 02/17/19 Ondansetron [Zofran Odt 4 mg Tablet] 4 mg PO Q4HP PRN #30 tab.rapdis 02/17/19 History of Present Illiness History of Present Illness: VICTORIANO TRUJILLO is a 74 year old female with a past medical history of breast cancer and small cell lung cancer with extensive dose radiation and chemotherapy and continued on immunotherapy injections reports she had nausea and vomiting diarrhea for last few days. Patient states to them the pharmacy she told EMS who were called for her by [facility] that she was confused in the car. When arrived she is alert and talking and then her blood sugar was normal but her blood pressure was low 80s over 60s. Patient brought to the ER given IV fluids and found to have acute renal failure. She had no treatment prior arrival no true aggravating factors other than her previous nausea vomiting diarrhea Hospital Course Hospital Course: Patient was admitted with past medical history of breast cancer small cell cancer of the lung with extensive radiation and chemotherapy and acutely continued on immunotherapy injections. Patient had nausea and vomiting diarrhea for last 2 days. Showed an acute renal failure. Patient was admitted overnight placed on IV fluids was found to have a small UTI for which I will place her on Ceftin 500 mg p.o. twice daily and I have sent her home with Zofran 4 mill grams ODT 1 every 4 hours as needed #30. We will have patient follow-up with her primary care within 1 week. Patient is agrees with plan of care. I will await stool sample results and contact patient as needed Physical Exam Vital Signs: Temp Pulse Resp BP Pulse Ox 98.1 F 79 18 118/69 94 02/16/19 23:46 02/16/19 23:46 02/16/19 23:46 02/16/19 23:46 02/16/19 23:46 Intake & Output 02/16/19 02/17/19 02/18/19 06:59 06:59 06:59 Intake Total 5462 Balance 5462 Weight 91.1 kg General appearance: PRESENT: no acute distress, well-developed, well-nourished Head exam: PRESENT: atraumatic, normocephalic Eye exam: PRESENT: conjunctiva pink, EOMI, PERRLA. ABSENT: scleral icterus Ear exam: PRESENT: normal external ear exam Mouth exam: PRESENT: moist, tongue midline Neck exam: ABSENT: carotid bruit, JVD, lymphadenopathy, thyromegaly Respiratory exam: PRESENT: clear to auscultation emi. ABSENT: rales, rhonchi, wheezes Cardiovascular exam: PRESENT: RRR. ABSENT: diastolic murmur, rubs, systolic murmur Pulses: PRESENT: normal dorsalis pedis pul Vascular exam: PRESENT: normal capillary refill GI/Abdominal exam: PRESENT: normal bowel sounds, soft. ABSENT: distended, guarding, mass, organolmegaly, rebound, tenderness Rectal exam: PRESENT: deferred Extremities exam: PRESENT: full ROM. ABSENT: calf tenderness, clubbing, pedal edema Neurological exam: PRESENT: alert, awake, oriented to person, oriented to place, oriented to time, oriented to situation, CN II-XII grossly intact. ABSENT: motor sensory deficit Psychiatric exam: PRESENT: appropriate affect, normal mood. ABSENT: homicidal ideation, suicidal ideation Skin exam: PRESENT: dry, intact, warm, other - Mastectomy. ABSENT: cyanosis, rash Results Laboratory Results: WBC 6.0 10^3/uL (4.0-10.5) 02/17/19 04:08 RBC 3.10 10^6/uL (3.72-5.28) L 02/17/19 04:08 Hgb 9.8 g/dL (12.0-15.5) L D 02/17/19 04:08 Hct 28.5 % (36.0-47.0) L 02/17/19 04:08 MCV 92 fl (80-97) 02/17/19 04:08 MCH 31.5 pg (27.0-33.4) 02/17/19 04:08 MCHC 34.3 g/dL (32.0-36.0) 02/17/19 04:08 RDW 15.5 % (11.5-14.0) H 02/17/19 04:08 Plt Count 189 10^3/uL (150-450) 02/17/19 04:08 Lymph % (Auto) 5.2 % (13-45) L 02/16/19 10:30 [place] % (Auto) 9.8 % (3-13) 02/16/19 10:30 Eos % (Auto) 1.3 % (0-6) 02/16/19 10:30 Baso % (Auto) 0.3 % (0-2) 02/16/19 10:30 Absolute Neuts (auto) 5.8 10^3/uL (1.7-8.2) 02/16/19 10:30 Absolute Lymphs (auto) 0.4 10^3/uL (0.5-4.7) L 02/16/19 10:30 Absolute Monos (auto) 0.7 10^3/uL (0.1-1.4) 02/16/19 10:30 Absolute Eos (auto) 0.1 10^3/uL (0.0-0.6) 02/16/19 10:30 Absolute Basos (auto) 0.0 10^3/uL (0.0-0.2) 02/16/19 10:30 Seg Neutrophils % 83.4 % (42-78) H 02/16/19 10:30 PT 12.7 SEC (11.4-15.4) 02/16/19 10:30 INR 0.95 02/16/19 10:30 VBG pH 7.37 (7.30-7.42) 02/16/19 12:09 VBG pCO2 45.0 mmHg (35-63) 02/16/19 12:09 VBG HCO3 25.6 mmol/L (20-32) 02/16/19 12:09 VBG Base Excess 0.1 mmol/L 02/16/19 12:09 Sodium 139.9 mmol/L (137-145) 02/17/19 04:08 Potassium 3.5 mmol/L (3.6-5.0) L 02/17/19 04:08 Chloride 107 mmol/L (98-107) 02/17/19 04:08 Carbon Dioxide 27 mmol/L (22-30) 02/17/19 04:08 Anion Gap 6 (5-19) 02/17/19 04:08 BUN 28 mg/dL (7-20) H 02/17/19 04:08 Creatinine 1.29 mg/dL (0.52-1.25) H 02/17/19 04:08 Est GFR ( Amer) 49 (>60) L 02/17/19 04:08 Est GFR (MDRD) Non-Af 41 (>60) L 02/17/19 04:08 Glucose 92 mg/dL (75-110) 02/17/19 04:08 POC Glucose 96 mg/dL (70-110) 02/16/19 11:07 Lactic Acid (Sepsis) 0.9 mmol/L (0.7-2.1) 02/16/19 23:17 Calcium 7.7 mg/dL (8.4-10.2) L 02/17/19 04:08 Phosphorus 3.0 mg/dL (2.5-4.5) D 02/17/19 04:08 Magnesium 1.8 mg/dL (1.6-2.3) 02/17/19 04:08 Total Bilirubin 0.6 mg/dL (0.2-1.3) 02/16/19 10:30 Direct Bilirubin 0.2 mg/dL (0.0-0.4) 02/16/19 10:30 Neonat Total Bilirubin Not Reportable 02/16/19 10:30 Neonat Direct Bilirubin Not Reportable 02/16/19 10:30 Neonat Indirect Bili Not Reportable 02/16/19 10:30 AST 34 U/L (14-36) 02/16/19 10:30 ALT 47 U/L (<35) 02/16/19 10:30 Alkaline Phosphatase 94 U/L (38-126) 02/16/19 10:30 Troponin I < 0.012 ng/mL 02/16/19 10:30 Total Protein 7.6 g/dL (6.3-8.2) 02/16/19 10:30 Albumin 4.5 g/dL (3.5-5.0) 02/16/19 10:30 TSH 16.20 uIU/mL (0.47-4.68) H 02/16/19 10:30 Urine Color YELLOW 02/16/19 12:20 Urine Appearance SLIGHTLY-CLOUDY 02/16/19 12:20 Urine pH 5.0 (5.0-9.0) 02/16/19 12:20 Ur Specific [place] 1.017 02/16/19 12:20 Urine Protein 30 mg/dL (NEGATIVE) H 02/16/19 12:20 Urine Glucose (UA) NEGATIVE mg/dL (NEGATIVE) 02/16/19 12:20 Urine Ketones TRACE mg/dL (NEGATIVE) H 02/16/19 12:20 Urine Blood SMALL (NEGATIVE) H 02/16/19 12:20 Urine Nitrite (Reflex) NEGATIVE (NEGATIVE) 02/16/19 12:20 Urine Bilirubin NEGATIVE (NEGATIVE) 02/16/19 12:20 Urine Urobilinogen NEGATIVE mg/dL (<2.0) 02/16/19 12:20 Leukocyte Esterase Rfl TRACE (NEGATIVE) H 02/16/19 12:20 Urine RBC (Auto) 1 /HPF 02/16/19 12:20 U Hyaline Cast (Auto) 15 /LPF 02/16/19 12:20 Urine WBC (Reflex) 1 /HPF 02/16/19 12:20 Squamous Epi Cells Auto <1 /HPF 02/16/19 12:20 Urine Mucus (Auto) FEW /LPF 02/16/19 12:20 Urine Ascorbic Acid NEGATIVE (NEGATIVE) 02/16/19 12:20 02/16/19 10:30 Troponin I < 0.012 Impressions: Chest X-Ray 02/16/19 10:50 IMPRESSION: Ill-defined right suprahilar opacity, possibly infectious. Recommend follow-up chest radiograph or CT to ensure resolution. Plan Time Spent: Greater than 30 Minutes Stroke Is this a Stroke Patient?: No Acute Heart Failure - Is this a Heart Failure Patient?: No
[2019-02-17] MEDS ORDERED: CARVEDILOL 12.5 MG TABLET PO SCH (10:00)
[2019-02-17] MEDS ORDERED: (PENDING PHARMACY ID) (Mirabegron [Myrbetriq] 50 MG) PO SCH (10:00)
[2019-02-17] MEDS ORDERED: BENAZEPRIL HCL 20 MG TABLET PO SCH (10:00)
[2019-02-17 11:03] VITALS: BP 118/69
[2019-02-17] MEDS ORDERED: AMLODIPINE BESYLATE 5 MG TABLET PO SCH (22:00)
== END 2019-02-17 13:18 | disposition home or self-care (01) ==
LOC: ER 10:44 → EH 12:43 → INTOOBSV 12:43 → 4N 17:36
PROVIDERS: ADMIT Hospitalist; ATTEND Hospitalist
DX: I95.9 Hypotension, unspecified (principal); N17.9 Acute kidney failure, unspecified; R19.7 Diarrhea, unspecified; R11.2 Nausea with vomiting, unspecified; E83.39 Other disorders of phosphorus metabolism; R41.0 Disorientation, unspecified; I10 Essential (primary) hypertension; N39.0 Urinary tract infection, site not specified; R63.0 Anorexia; Z79.899 Other long term (current) drug therapy; Z85.3 Personal history of malignant neoplasm of breast; Z85.118 Personal history of other malignant neoplasm of bronchus and lung; Z86.010 Personal history of colon polyps; Z87.891 Personal history of nicotine dependence; Z90.49 Acquired absence of other specified parts of digestive tract; Z90.13 Acquired absence of bilateral breasts and nipples; Z95.828 Presence of other vascular implants and grafts; Z92.3 Personal history of irradiation; Z92.21 Personal history of antineoplastic chemotherapy; Z87.19 Personal history of other diseases of the digestive system
CPT/HCPCS: 93005; 99285; 36415 ×2; 87040; 87086; 82962; 83735 ×2; 84100 ×2; 84443; 85025; 85027; 85610; 80048; 80053; 81001; 84484; 82803; 83605; 71045; 93010; G0378 ×3; J3490 ×2; J2405; J7030 ×2; J7120; A9270 ×2; J0696

== ENCOUNTER → 2019-08-25 | Outpatient (CLI) | payer MEDICARE, BC ==
[2019-08-25 10:01] LABS: ANION GAP 7 (5-19); BLOOD UREA NITROGEN 25 mg/dL (7-20); CALCIUM 9.1 mg/dL (8.4-10.2); CARBON DIOXIDE 30 mmol/L (22-30); CHLORIDE 102 mmol/L (98-107); GLUCOSE 114 mg/dL (75-110); POTASSIUM 4.5 mmol/L (3.6-5.0)
== END ==
LOC: OD 08:32
PROVIDERS: ATTEND Internal Medicine Cardiovascular Disease
DX: E03.9 Hypothyroidism, unspecified (principal); I10 Essential (primary) hypertension; Z79.899 Other long term (current) drug therapy
CPT/HCPCS: 36415; 80048

== ENCOUNTER → 2019-10-05 | Outpatient (CLI) | payer MEDICARE, BC ==
--- NOTE | 2019-10-05 10:57 | WOMENS IMAGING REPORT ---
EXAM DESCRIPTION: BONE DENSITY HIP/SPINE IMAGES COMPLETED DATE/TIME: 10/05/2019 10:35 am REASON FOR STUDY: Z79.811 RESIDENTIAL (CURRENT) USE OF AROMATASE INHIBITORS Z79.811 VICE PROVOST (CURREN T) USE OF AROMATASE INHIBITORS COMPARISON: None. TECHNIQUE: Dual-Energy X-ray Absorptiometry (DEXA) of the AP Spine and Hip. LIMITATIONS: None. FINDINGS: LUMBAR SPINE: The bone mineral density (BMD) measured from L1-L4 in the AP projection correlates with a T-score of -1.8, which is osteopenia as defined by the World Health Organization. BMD Change vs Baseline: N/A HIP: The bone mineral density (BMD) measured in the left hip correlates with a T-score of -0.9, which is n ormal as defined by the World Health Organization. BMD Change vs Baseline: N/A 10 year Fracture Risk Assessment: Major Osteoporotic Fracture: 8.6% Hip Fracture: 1% IMPRESSION: 1. LUMBAR SPINE WHO CLASSIFICATION: OSTEOPENIA. 2. HIP WHO CLASSIFICATION: NORMAL. OVERALL ASSESSMENT: WHO CLASSIFICATION: OSTEOPENIA. COMMENT: The World Health Organization defines low BMD as follows: T-score: Normal: At or above -1.0 Osteopenia: Between -1.0 and -2.5 Osteoporosis: At or below -2.5 without fractures Established osteoporosis: At or below -2.5 with fractures In general, you may wish to consider: Diagnosis Treatment Follow-up DEXA Normal BMD Prevention 2-3 years Osteopenia Prevention/Therapy 1-2 years Osteoporosis Therapy Yearly TECHNICAL DOCUMENTATION: JOB ID: [id number] 2010 [employer]- All Rights Reserved Reading location - IP/workstation name: [email or web address]
== END ==
LOC: WI 10:00
PROVIDERS: ATTEND Internal Medicine Hematology & Oncology
DX: E28.39 Other primary ovarian failure (principal); N95.8 Other specified menopausal and perimenopausal disorders
CPT/HCPCS: 77080